=== PATIENT | female | born 1960 | race Caucasian/White ===

== ENCOUNTER 2019-03-09 15:07 | Inpatient (IN) | payer OTHER ==
[~2019-03-09] VITALS: Ht 172.7 cm; Wt 90.1 kg
[~2019-03-09 15:07] MED LIST: BUSP10TA PO; CLONAZEPAM1 MG PO; CYCL10TA2 PO; EPIPEN 2-P0.3 MG/0.3 IJ; ETOD400T PO; FLUT9.9S NS; LAMO100T5 PO; LORA10TA3 PO; MONT10TA49 PO; PREG75CA PO; PROP40TA PO; QUET400T7 PO; ROPI1TAB PO; ROTI1PAT2 TD; SUMA100T3 PO; TIOT18CA IH; VENTOLIN HFA18 GM INH
[2019-03-09] MEDS ORDERED: IV NORMAL SALINE 1000ML BAG 1,000 ML IV SCH (15:36)
[2019-03-09] MEDS ORDERED: KETOROLAC 30 MG/ML VIAL. IVP ONE (15:45)
[2019-03-09] MEDS ORDERED: diphenhydrAMINE 50 MG/ML VIAL IVP ONE (15:45)
[2019-03-09] MEDS ORDERED: PROCHLORPERAZINE 10 MG/2 ML VIAL. IV ONE (15:45)
--- NOTE | 2019-03-09 16:18 | PHYS DOC ---
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 Bentley. Patient states she just completed radiation on her brain at the frontal lobe in the left side of her head about 2 weeks ago. Patient states she's had a migraine for last 5 days. Patient states that her joints been hurting for the last month. Patient states she walked into her bedroom last night her legs gave out for no reason she fell hitting her head on the wall. She denies LOC but states her lower back in her bilateral hips are aching. Patient does not usually wear oxygen at home and she is 86% on room air. She is placed on 2 L of oxygen is at 91%. Patient states she was just weaned off his seizure medications and steroid with taking the last stair and 3 days ago. She states she also has back of the neck pain that usually comes with her migraines. She states that this does feel like a headache. She states that she does answer joints of all been hurting because they have taken her off of Etodolac. Patient states that she took a Imitrex this morning and Lamictal. She states that her pain continues. She rates her pain a 9 out of 10. She denies being on any blood thinners. She denies visual changes, nausea, vomit ing, photophobia, LOC, dizziness, increased shortness of air, fever, neck stiffness, numbness or tingling, abdominal pain, diarrhea. She states what made her call the ambulance today was that she began having left-sided chest pain that felt like she got punched in the chest to the point where it took her breath away. She states that since gone away. She stated that the pain lasted 30-45 minutes. Review of Systems Review of Systems Respiratory: Denies cough. +shortness of breath [] Cardiovascular: Left chest pain Musculoskeletal: lumbar back pain or hip joint pain [] Neurologic: headache, denies focal weakness or sensory changes [] All other systems were reviewed and found to be within normal limits, except as documented in this note. Current Medications Current Medications Current Medications Medications (Trade) Dose Ordered Sig/Bryant Start Time Stop Time Status Last Admin Dose Admin Acetaminophen (Tylenol) 650 mg PRN Q4HRS PRN 03/09/19 18:15 03/10/19 18:14 UNV Albuterol/ Ipratropium (Duoneb) 3 ml RTQID 03/09/19 20:00 03/10/19 19:59 UNV Ceftriaxone Sodium (Rocephin) 1 gm 1X ONCE 03/09/19 17:00 03/09/19 17:01 DC 03/09/19 17:13 1 GM Diphenhydramine HCl (Benadryl) 25 mg 1X ONCE 03/09/19 15:45 03/09/19 15:46 UNV Doxycycline Hyclate 100 mg/ Dextrose 100 ml @ 50 mls/hr 1X ONCE 03/09/19 17:00 03/09/19 18:59 03/09/19 17:26 50 MLS/HR Ketorolac Tromethamine (Toradol 30mg Vial) 30 mg 1X ONCE 03/09/19 15:45 03/09/19 15:50 DC 03/09/19 17:18 30 MG Methylprednisolone Sodium Succinate (SOLU-Medrol 125MG VIAL) 62.5 mg 1X ONCE 03/09/19 17:00 03/09/19 17:01 DC 03/09/19 17:23 62.5 MG Nitroglycerin (Nitrostat) 0.4 mg PRN Q5MIN PRN 03/09/19 18:15 03/10/19 18:14 UNV Ondansetron HCl (Zofran) 4 mg PRN Q8HRS PRN 03/09/19 18:15 03/10/19 18:14 UNV Prochlorperazine Edisylate (Compazine) 10 mg 1X ONCE 03/09/19 15:45 03/09/19 15:46 DC 03/09/19 17:21 10 MG Sodium Chloride 1,000 ml @ 1,000 mls/hr Q1H 03/09/19 15:36 03/09/19 16:35 DC 03/09/19 17:10 1,000 MLS/HR Allergies Allergies Allergies Coded Allergies Type Severity Reaction Last Updated Verified bee venom protein (honey bee) Allergy Intermediate 07/08/17 Yes celecoxib Allergy Intermediate 07/08/17 No diphenhydramine Allergy Intermediate 07/08/17 No fentanyl Allergy Intermediate 07/08/17 No hydromorphone Allergy Intermediate 07/08/17 Yes morphine Allergy Intermediate 07/08/17 No pramipexole Allergy Intermediate 07/08/17 No propoxyphene Allergy Intermediate 07/08/17 No tizanidine Allergy Unknown 07/08/17 No vancomycin Allergy Unknown 07/08/17 No varenicline Allergy Unknown 07/08/17 No Physical Exam Physical Exam Constitutional: Well developed, well nourished, no acute distress, non-toxic appearance. [] HENT: Normocephalic, atraumatic, bilateral external ears normal, oropharynx moist, no oral exudates, nose normal. [] Eyes: PERRLA, EOMI, conjunctiva normal, no discharge. [] Neck: Normal range of motion, no tenderness, supple, no stridor. [] Cardiovascular:Heart rate regular rhythm, no murmur [] Lungs & Thorax: Bilateral breath sounds diminished to auscultation [] Abdomen: Bowel sounds normal, soft, no tenderness, no masses, no pulsatile masses. [] Skin: Warm, dry, no erythema, no rash. [] Back: No tenderness, no CVA tenderness. [] Extremities: No tenderness, no cyanosis, no clubbing, ROM intact, no edema. [] Neurologic: Alert and oriented X 3, normal motor function, normal sensory function, no focal deficits noted. [] Psychologic: Affect normal, judgement normal, mood normal. [] Current Patient Data Vital Signs Vital Signs Date Time Temp Pulse Resp B/P (MAP) Pulse Ox O2 Delivery O2 Flow Rate FiO2 03/09/19 17:08 101 20 93 03/09/19 17:03 Nasal Cannula 3.0 03/09/19 15:10 98.9 108/84 (92) 98.9 Lab Values Laboratory Tests Test 03/09/19 14:52 03/09/19 15:36 03/09/19 16:45 Influenza Type A Antigen Negative (NEGATIVE) Influenza Type B Antigen Negative (NEGATIVE) O2 Saturation 92 % (92-99) Arterial Blood pH 7.41 (7.35-7.45) Arterial Blood pCO2 at Patient Temp 59 mmHg (35-46) H Arterial Blood pO2 at Patient Temp 56 mmHg (65-108) L Arterial Blood HCO3 36 mmol/L (21-28) H Arterial Blood Base Excess 9 mmol/L (-3-3) H Oxyhemoglobin 73.0 % Methemoglobin 0.3 % (0.0-1.9) Carbon Monoxide, Quantitative 20.2 % (0.0-1.9) *H FiO2 3l n.c. White Blood Count 7.8 x10^3/uL (4.0-11.0) Red Blood Count 4.49 x10^6/uL (3.50-5.40) Hemoglobin 15.2 g/dL (12.0-15.5) Hematocrit 43.1 % (36.0-47.0) Mean Corpuscular Volume 96 fL (79-100) Mean Corpuscular Hemoglobin 34 pg (25-35) Mean Corpuscular Hemoglobin Concent 35 g/dL (31-37) Red Cell Distribution Width 14.5 % (11.5-14.5) Platelet Count 166 x10^3/uL (140-400) Neutrophils (%) (Auto) 74 % (31-73) H Lymphocytes (%) (Auto) 19 % (24-48) L Monocytes (%) (Auto) 5 % (0-9) Eosinophils (%) (Auto) 1 % (0-3) Basophils (%) (Auto) 1 % (0-3) Neutrophils # (Auto) 5.8 x10^3/uL (1.8-7.7) Lymphocytes # (Auto) 1.5 x10^3/uL (1.0-4.8) Monocytes # (Auto) 0.4 x10^3/uL (0.0-1.1) Eosinophils # (Auto) 0.1 x10^3/uL (0.0-0.7) Basophils # (Auto) 0.1 x10^3/uL (0.0-0.2) Prothrombin Time 12.1 SEC (11.7-14.0) Prothrombin Time INR 0.9 (0.8-1.1) Sodium Level 138 mmol/L (136-145) Potassium Level 3.4 mmol/L (3.5-5.1) L Chloride Level 99 mmol/L (98-107) Carbon Dioxide Level 36 mmol/L (21-32) H Anion Gap 3 (6-14) L Blood Urea Nitrogen 10 mg/dL (7-20) Creatinine 0.5 mg/dL (0.6-1.0) L Estimated GFR (Cockcroft-Gault) 125.9 BUN/Creatinine Ratio 20 (6-20) Glucose Level 107 mg/dL (70-99) H Lactic Acid Level 0.5 mmol/L (0.4-2.0) Calcium Level 8.6 mg/dL (8.5-10.1) Total Bilirubin 0.5 mg/dL (0.2-1.0) Aspartate Amino Transferase (AST) 10 U/L (15-37) L Alanine Aminotransferase (ALT) 23 U/L (14-59) Alkaline Phosphatase 150 U/L (46-116) H Troponin I Quantitative < 0.017 ng/mL (0.000-0.055) Total Protein 6.4 g/dL (6.4-8.2) Albumin 2.8 g/dL (3.4-5.0) L Albumin/Globulin Ratio 0.8 (1.0-1.7) L Laboratory Tests 03/09/19 16:45 Laboratory Tests 03/09/19 16:45 EKG EKG SINUS TACHYCARDIA, NO STEMI[] Interpretation Time: [address] REYNOSO Radiology/Procedures Radiology/Procedures [] Impressions: [facility] [address] [place] [address] IMAGING REPORT Signed PATIENT: STEVEN LEE ACCOUNT: [id number] : 1960 LOCATION: ER AGE: 59 SEX: F EXAM STATUS: REG ER ORD. PHYSICIAN: ROSA FREDERICK APRN REASON: soa, chest pain, hx ca PROCEDURE: PORTABLE CHEST 1V PORTABLE CHEST 1V 03/09/2019 3:36 PM INDICATION: Shortness of air, chest pain COMPARISON: None available TECHNIQUE: Portable supine frontal view of the chest is provided. FINDINGS: The cardiomediastinal silhouette is within normal limits. There are bilateral perihilar interstitial changes which may be acute or chronic. There are no significant pleural effusions. There is no pulmonary vascular congestion. No pneumothorax. IMPRESSION: Perihilar interstitial changes may represent interstitial pneumonitis or interstitial edema in the acute setting. Findings could represent chronic interstitial lung disease. Electronically signed by: John Luna MD (03/09/2019 4:14 PM) [id number] DICTATED and SIGNED BY: JOHN LUNA MD DATE: 03/09/[address] [place] [id number] IMAGING REPORT Signed PATIENT: STEVEN LEE ACCOUNT: [id number] : 1960 LOCATION: ER AGE: 59 SEX: F EXAM STATUS: REG ER ORD. PHYSICIAN: ROSA FREDERICK APRN REASON: fall, pain PROCEDURE: HIP BILATERAL WITH PELVIS HIP BILATERAL WITH PELVIS 03/09/2019 3:36 PM INDICATION: Fall, pain COMPARISON: None available. TECHNIQUE: Single view the pelvis and 2 dedicated views of each hip are provided. FINDINGS/ IMPRESSION: There is no acute fracture or dislocation. Joint spaces are maintained. Bone mineralization is within normal limits. Regional soft tissues are within normal limits. There is no soft tissue gas or osseous erosion. No radiopaque foreign body. Electronically signed by: John Luna MD (03/09/2019 4:17 PM) [id number] DICTATED and SIGNED BY: JOHN LUNA MD DATE: 03/09/[address] [place] [id number] IMAGING REPORT Signed PATIENT: SETVEN LEE ACCOUNT: [id number] : 1960 LOCATION: ER AGE: 59 SEX: F EXAM STATUS: REG ER ORD. PHYSICIAN: ROSA FREDERICK APRN REASON: fall, pain PROCEDURE: LUMBAR SPINE MIN 4V LUMBAR SPINE MIN 4V 03/09/2019 3:36 PM Indication: Fall, pain COMPARISON: None available TECHNIQUE: 5 views of the lumbar spine are provided. Findings: There is minimal dextro convex curvature of the lumbar spine. No spondylolysis or spondylolisthesis. Vertebral body heights are maintained. No acute fracture is identified. Mild disc height loss at L4-L5. There is mild to moderate facet arthropathy with the lumbar spine. No significant endplate degenerative changes are identified. No significant osseous neuroforaminal stenosis or spinal canal stenosis. Nonobstructive bowel gas pattern. Visualized portions of the sacrum appear intact. Cholecystectomy clips are identified in the right upper quadrant abdomen. Impression: No acute fracture or sagittal malalignment of the lumbar spine. Mild dextroconvex curvature of the lumbar spine. Mild lumbar spondylosis. Electronically signed by: John Luna MD (03/09/2019 4:15 PM) [id number] DICTATED and SIGNED BY: JOHN LUNA MD DATE: 03/09/19 1615 [facility] [address] [place] [address] IMAGING REPORT Signed PATIENT: STEVEN LEE ACCOUNT: [id number] : 1960 LOCATION: ER AGE: 59 SEX: F EXAM STATUS: REG ER ORD. PHYSICIAN: ROSA FREDERICK APRN REASON: headache, fall hit head, brain ca PROCEDURE: CT HEAD AND CERVICAL SPINE WO Examination: CT HEAD AND CERVICAL SPINE WO History: Headache, fell and hit the head. Comparison/Correlation: None Findings: Axial images of the head and cervical spine were obtained without contrast. Sagittal and coronal reformatted images were provided. Right high frontal low attenuation probably representing infarct is present and of indeterminate age. No intracranial hemorrhage, shift, or mass effect. Atlantoaxial joint degenerative remodeling spurring noted. Vertebral body heights and disc spaces are adequate. Alignment is unremarkable. Neural foramina are patent. Soft tissues of the neck are unremarkable. Emphysematous involvement of the visualized lung apices noted. Impression: No intracranial hemorrhage. High right frontal low attenuation probably representing an infarct is present and of indeterminate age No fracture or bony destruction involving the cervical spine. PQRS Compliance Statement: One or more of the following individualized dose reduction techniques were utilized for this examination: 1. Automated exposure control 2. Adjustment of the mA and/or kV according to patient size 3. Use of iterative reconstruction technique Electronically signed by: Dayron De eLón MD (03/09/2019 4:51 PM) [facility] [place] DICTATED and SIGNED BY: DAYRON DE LEÓN MD DATE: 03/09/19 956 Course & Med Decision Making Course & Med Decision Making Alert and oriented. Speaks in full clear sentences. Lungs are diminished throughout all lobes. Abdomen is soft and nontender. There is no bruising on the patient's body or deformity to any joints or swelling. No abrasions no lacerations. No tenderness to palpation to the patients head. No bruising to the face or the head. No tenderness to the back with palpation. No deformity or bruising to her back. Patient has full range of motion in her neck. No tende rness to the neck with palpation. PERRLA. No chest pain with palpation. the swelling. there are no radiation booth to her head. full range of motion of her hips and no pain to palpation to her hips. no deformity to her hips or pelvis. no pain with pelvic rock. Has spoken Dr. Reynoso about this patient and he has seen her ABG. Patient is admitted to the hospital per Dr. Oconnor. I did start the patient on Rocephin and doxycycline. Dragon Disclaimer Dragon Disclaimer This electronic medical record was generated, in whole or in part, using a voice recognition dictation system. The HEART Score for CP Pts HEART Score for Chest Pain: HEART Score for Chest Pain Response (Comments) Value History Slighlty/Non-Suspicious 0 ECG Normal 0 Age >45 - < 65 1 Risk Factors 1 or 2 Risk Factors 1 Troponin < Normal Limit 0 Total 2 Risk Factors: Risk Factors: DM, Current or recent (<one month) smoker, HTN, HLP, family history of CAD, obesity. Risk Scores: Score 0 - 3: 2.5% MACE over next 6 weeks - Discharge Home Score 4 - 6: 20.3% MACE over next 6 weeks - Admit for Clinical Observation Score 7 - 10: 72.7% MACE over next 6 weeks - Early Invasive Strategies NIHSS Stroke Scale NIH Stroke Scale: NIH Stroke Scale Response (Comments) Value Level of Consciousness: 0 Alert/Responsive 0 LOC Questions: 0 Answers both correctly 0 LOC Commands: 0 Performs both tasks 0 Best Gaze: 0 Normal 0 Visual: 0 No visual loss 0 Facial Palsy: 0 Normal, symmetrical 0 Motor - Left Arm 0 No drift 0 Motor - Right Arm 0 No drift 0 Motor - Left Leg 0 No drift 0 Motor: Right Leg 0 No drift 0 Limb Ataxia: 0 Absent 0 Sensory: 0 No loss 0 Best Language: 0 Normal 0 Dysathria: 0 Normal 0 Extinction and Inattention: 0 Normal 0 Total 0 Departure Departure Impression: Primary Impression: Pneumonia Additional Impression: Chest pain Disposition: 09 ADMITTED INPATIENT Admitting Physician: NEHEMIAS Condition: STABLE Referrals: FRANKIE LOUIS MD (PCP) Problem Qualifiers Primary Impression: Pneumonia Pneumonia type: due to unspecified organism Laterality: left Lung locatio n: unspecified part of lung Qualified Codes: J18.9 - Pneumonia, un specified organism Additional Impression: Chest pain Chest pain type: unspecified Qualified Codes: R07.9 - Chest pain, unspecified ROSA FREDERICK [employer] Mar 09, 2019 16:18
--- NOTE | 2019-03-09 16:54 | RAD ---
Examination: CT HEAD AND CERVICAL SPINE WO History: Headache, fell and hit the head. Comparison/Correlation: None Findings: Axial images of the head and cervical spine were obtained without contrast. Sagittal and coronal reformatted images were provided. Right high frontal low attenuation probably representing infarct is present and of indeterminate age. No intracranial hemorrhage, shift, or mass effect. Atlantoaxial joint degenerative remodeling spurring noted. Vertebral body heights and disc spaces are adequate. Alignment is unremarkable. Neural foramina are patent. Soft tissues of the neck are unremarkable. Emphysematous involvement of the visualized lung apices noted. Impression: No intracranial hemorrhage. High right frontal low attenuation probably representing an infarct is present and of indeterminate age No fracture or bony destruction involving the cervical spine. PQRS Compliance Statement: One or more of the following individualized dose reduction techniques were utilized for this examination: 1. Automated exposure control 2. Adjustment of the mA and/or kV according to patient size 3. Use of iterative reconstruction technique Electronically signed by: Dayron Love MD (03/09/2019 4:51 PM) [facility]
[2019-03-09] MEDS ORDERED: IPRATRPIUM/ALBUTEROL 0.5/2.5MG 3 ML NEBU. NEB ONE (17:00)
[2019-03-09] MEDS ORDERED: methylPREDNISolone SOD SUCC PF 125 MG/2 ML VIAL. IV ONE (17:00)
[2019-03-09] MEDS ORDERED: cefTRIAXone IV Push 1 GM VIAL. IVP ONE (17:00)
[2019-03-09] MEDS ORDERED: DOXYCYCLINE HYCLATE 100 MG in IV DEXTROSE 5% 100ML 100 ML IV ONE (17:00)
[2019-03-09 17:13] LABS: BASO # 0.1 x10^3/uL (0.0-0.2); BASO % 1 % (0-3); EOS # 0.1 x10^3/uL (0.0-0.7); EOS % 1 % (0-3); HEMATOCRIT 43.1 % (36.0-47.0); HEMOGLOBIN 15.2 g/dL (12.0-15.5); LYMPH # 1.5 x10^3/uL (1.0-4.8); LYMPH % 19 % (24-48); MEAN CORPUSCULAR HEMOGLOBIN 34 pg (25-35); MEAN CORPUSCULAR HGB CONC 35 g/dL (31-37); MEAN CORPUSCULAR VOLUME 96 fL (79-100); MONO # 0.4 x10^3/uL (0.0-1.1); MONO % 5 % (0-9); NEUT # 5.8 x10^3/uL (1.8-7.7); NEUT % 74 % (31-73); PLATELET COUNT 166 x10^3/uL (140-400); RED BLOOD COUNT 4.49 x10^6/uL (3.50-5.40); RED CELL DISTRIBUTION WIDTH 14.5 % (11.5-14.5); WHITE BLOOD COUNT 7.8 x10^3/uL (4.0-11.0)
[2019-03-09 17:14] LABS: CALCIUM 8.6 mg/dL (8.5-10.1); CREATININE 0.5 mg/dL (0.6-1.0); GFR 125.9; POTASSIUM 3.4 mmol/L (3.5-5.1)
[2019-03-09 17:18] LABS: BASE EXCESS COOX 9 mmol/L (-3-3); HCO3 COOX 36 mmol/L (21-28); METHEMOGLOBIN 0.3 % (0.0-1.9); PCO2 COOX 59 mmHg (35-46); PO2 COOX 56 mmHg (65-108); SAT O2 COOX 92 % (92-99)
[2019-03-09 17:19] LABS: ALBUMIN 2.8 g/dL (3.4-5.0); ALBUMIN/GLOBULIN RATIO 0.8 (1.0-1.7); TOTAL BILIRUBIN 0.5 mg/dL (0.2-1.0); TOTAL PROTEIN 6.4 g/dL (6.4-8.2)
[2019-03-09 17:20] LABS: PROTHROMBIN TIME PATIENT 12.1 SEC (11.7-14.0)
[2019-03-09 17:47] LABS: INFLUENZA A PATIENT NEGATIVE (NEGATIVE); INFLUENZA B PATIENT NEGATIVE (NEGATIVE)
[2019-03-09] MEDS ORDERED: ONDANSETRON PF 4 MG/2 ML VIAL. IV PRN (18:15)
[2019-03-09] MEDS ORDERED: NITROGLYCERIN SUBLINGUAL 0.4 MG BOTTLE OF 25. SL PRN (18:15)
[2019-03-09] MEDS ORDERED: ACETAMINOPHEN 325 MG TABLET. PO PRN (18:15)
--- NOTE | 2019-03-09 19:27 | PDOC1 ---
History and Physical Date of Admission: Date of Admission DATE: 03/09/19 TIME: 19:23 Chief Complaint: Problems: (1) Chest pain (2) Pneumonia Chief Complain: Headache weakness lung cancer with metastases to the brain History of Present Illness: HPI: This is a pleasant 59-year-old female who has metastatic lung cancer to the brain. She is supposed to get some special chemotherapy that's experimental sometime in the future I suspect her long-term prognosis is quite poor Today she's developed a migraine headache presented to the ER for evaluation Rates her symptoms as 7 out of 10 She also has some left-sided chest pain I believe she was a previous smoker and has COPD She also fell recently Jose the ER we checked her O2 sat are chest x-ray is showing pneumonia nurse sat is 86% Discussed case with ER physician were going to with patient Past Medical/Surgical History: PMH/PSH: Past Medical History: Cancer, COPD, Migraines Past Surgical History: Other Additional Past Surgical Histo: UNKNOWN Alcohol Use: None Drug Use: None Metastatic lung cancer to the brain Allergies: Allergies: Coded Allergies: bee venom protein (honey bee) (Verified Allergy, Intermediate, 07/08/17) celecoxib (Unverified Allergy, Intermediate, 07/08/17) diphenhydramine (Unverified Allergy, Intermediate, 07/08/17) fentanyl (Unverified Allergy, Intermediate, 07/08/17) hydromorphone (Verified Allergy, Intermediate, 07/08/17) morphine (Unverified Allergy, Intermediate, 07/08/17) pramipexole (Unverified Allergy, Intermediate, 07/08/17) propoxyphene (Unverified Allergy, Intermediate, 07/08/17) tizanidine (Unverified Allergy, Unknown, 07/08/17) vancomycin (Unverified Allergy, Unknown, 07/08/17) varenicline (Unverified Allergy, Unknown, 07/08/17) Family History: Family History: Lung cancer Social History: Social Hisoty: She is to smoke or drink or drugs Current Medications: Current Medications Current Medications Sodium Chloride 1,000 ml @ 1,000 mls/hr Q1H IV Last administered on 03/09/19at 17:10; Start 03/09/19 at 15:36; Stop 03/09/19 at 16:35; Status DC Prochlorperazine Edisylate (Compazine) 10 mg 1X ONCE IV Last administered on 03/09/19at 17:21; Start 03/09/19 at 15:45; Stop 03/09/19 at 15:46; Status DC Diphenhydramine HCl (Benadryl) 25 mg 1X ONCE IVP ; Start 03/09/19 at 15:45; Stop 03/09/19 at 15:46; Status UNV Ketorolac Tromethamine (Toradol 30mg Vial) 30 mg 1X ONCE IVP Last administered on 03/09/19at 17:18; Start 03/09/19 at 15:45; Stop 03/09/19 at 15:50; Status DC Albuterol/ Ipratropium (Duoneb) 3 ml 1X ONCE NEB Last administered on 03/09/19at 17:00; Start 03/09/19 at 17:00; Stop 03/09/19 at 17:01; Status DC Ceftriaxone Sodium (Rocephin) 1 gm 1X ONCE IVP Last administered on 03/09/19at 17:13; Start 03/09/19 at 17:00; Stop 03/09/19 at 17:01; Status DC Doxycycline Hyclate 100 mg/ Dextrose 100 ml @ 50 mls/hr 1X ONCE IV Last administered on 03/09/19at 17:26; Start 03/09/19 at 17:00; Stop 03/09/19 at 18:59; Status DC Methylprednisolone Sodium Succinate (SOLU-Medrol 125MG VIAL) 62.5 mg 1X ONCE IV Last administered on 03/09/19at 17:23; Start 03/09/19 at 17:00; Stop 03/09/19 at 17:01; Status DC Ondansetron HCl (Zofran) 4 mg PRN Q8HRS PRN IV NAUSEA/VOMITING; Start 03/09/19 at 18:15; Stop 03/10/19 at 18:14 Acetaminophen (Tylenol) 650 mg PRN Q4HRS PRN PO FEVER; Start 03/09/19 at 18:15; Stop 03/10/19 at 18:14 Nitroglycerin (Nitrostat) 0.4 mg PRN Q5MIN PRN SL CHEST PAIN; Start 03/09/19 at 18:15; Stop 03/10/19 at 18:14 Albuterol/ Ipratropium (Duoneb) 3 ml RTQID NEB ; Start 03/09/19 at 20:00; Stop 03/10/19 at 19:59 Active Scripts Active Reported Lyrica (Pregabalin) 75 Mg Capsule 75 Mg PO TID Neupro (Rotigotine) 1 Each Patch.td24 1 Each TD Loratadine 10 Mg Tablet 10 Mg PO Montelukast Sodium Tablet (Montelukast Sodium) 10 Mg Tablet 10 Mg PO HS Flonase Allergy Relief (Fluticasone Propionate) 9.9 Ml [place].susp 2 Sprays NS DAILY Requip (Ropinirole Hcl) 1 Mg Tablet 1 Mg PO DAILY Etodolac 400 Mg Tablet 400 Mg PO Ventolin Hfa Inhaler (Albuterol Sulfate) 18 Gm Hfa.aer.ad 2 Puff INH Q4HRS Propranolol Hcl 40 Mg Tablet 40 Mg PO DAILY Lamictal (Lamotrigine) 100 Mg Tablet 100 Mg PO DAILY Propranolol Hcl 40 Mg Tablet 40 Mg PO DAILY Spiriva (Tiotropium [place]) 18 Mcg Cap.w.dev 2 Inh IH DAILY Imitrex (Sumatriptan Succinate) 100 Mg Tablet 100 Mg PO ONCE PRN Cyclobenzaprine Hcl 10 Mg Tablet 10 Mg PO TID Requip (Ropinirole Hcl) 1 Mg Tablet 1 Mg PO DAILY Lamictal (Lamotrigine) 100 Mg Tablet 100 Mg PO BID Buspirone Hcl 10 Mg Tablet 10 Mg PO BID Clonazepam 1 Mg Tablet 1 Mg PO DAILY Epipen 2-Chad (Epinephrine) 0.3 Mg/0.3 Ml Auto.injct 0.3 Mg IJ Seroquel Xr (Quetiapine Fumarate) 400 Mg Tab.er.24h 400 Mg PO HS ROS: Review of Systems Review of System REVIEW OF SYSTEMS: GENERAL: Denies weakness SKIN: No bruising, hair changes or rashes. EYES: No blurred, double or loss of vision. NOSE AND THROAT: No history of nosebleeds, hoarseness or sore throat. HEART: No history of palpitations, chest pain or shortness of breath on exertion. LUNGS: Denies cough, hemoptysis, wheezing or shortness of breath. GASTROINTESTINAL: Denies changes in appetite, nausea, vomiting, diarrhea or constipation. GENITOURINARY: No history of frequency, urgency, hesitancy or nocturia. NEUROLOGIC: Complains of headache PSYCHIATRIC: No history of panic, anxiety or depression. ENDOCRINE: No history of heat or cold intolerance, polyuria or polydipsia. EXTREMITIES: Denies muscle weakness, joint pain, pain on walking or stiffness. Physical Exam: Vital Signs: Vital Signs Date Time Temp Pulse Resp B/P (MAP) Pulse Ox O2 Delivery O2 Flow Rate FiO2 03/09/19 17:08 101 20 93 03/09/19 17:03 Nasal Cannula 3.0 03/09/19 15:10 98.9 108/84 (92) 98.9 Physcial Exam: GEN: No apparent distress. HEENT: Normal cephalic, atraumatic, external auditory canals are patent EYES: Extraocular muscles are intact, pupil are equally round and reactive to light and accommodation MUSCULOSKELETAL: Well developed , well nourished, good range of motion ENDOCRINE: Ny thyromegaly was palpated LYMPHATICS: No cervical chain or axillary nodes were noted HEMATOPOIETIC: No bruising NECK: Supple, no JVD, no thyromegaly was noted LUNGS: Clear to auscultation in all lung dunn without rhonchi or wheezing HEART: RRR, S!, S2 present. Peripheral pulses intact, no obvious murmurs noted ABDOMEN: Soft, nontender. Positive bowel sounds, no organomegaly, normal bowel sounds EXTREMITIES: Without clubbing, cyanosis, or edema. Pedal pulses intact. Negative Homans sign NEUROLOGIC: Resting with no apparent distress PSYCHIATRIC: Resting with no apparent distress SKIN: No ulcerations or rashes, good skin turgor, no jaundice VASCULAR: Good capillary refill, neurovascular bundle appears to be intact Labs: Labs: Laboratory Tests Test 03/09/19 14:52 03/09/19 15:36 03/09/19 16:45 Influenza Type A Antigen Negative (NEGATIVE) Influenza Type B Antigen Negative (NEGATIVE) O2 Saturation 92 % (92-99) Arterial Blood pH 7.41 (7.35-7.45) Arterial Blood pCO2 at Patient Temp 59 mmHg (35-46) Arterial Blood pO2 at Patient Temp 56 mmHg (65-108) Arterial Blood HCO3 36 mmol/L (21-28) Arterial Blood Base Excess 9 mmol/L (-3-3) Oxyhemoglobin 73.0 % Methemoglobin 0.3 % (0.0-1.9) Carbon Monoxide, Quantitative 20.2 % (0.0-1.9) FiO2 3l n.c. White Blood Count 7.8 x10^3/uL (4.0-11.0) Red Blood Count 4.49 x10^6/uL (3.50-5.40) Hemoglobin 15.2 g/dL (12.0-15.5) Hematocrit 43.1 % (36.0-47.0) Mean Corpuscular Volume 96 fL (79-100) Mean Corpuscular Hemoglobin 34 pg (25-35) Mean Corpuscular Hemoglobin Concent 35 g/dL (31-37) Red Cell Distribution Width 14.5 % (11.5-14.5) Platelet Count 166 x10^3/uL (140-400) Neutrophils (%) (Auto) 74 % (31-73) Lymphocytes (%) (Auto) 19 % (24-48) Monocytes (%) (Auto) 5 % (0-9) Eosinophils (%) (Auto) 1 % (0-3) Basophils (%) (Auto) 1 % (0-3) Neutrophils # (Auto) 5.8 x10^3/uL (1.8-7.7) Lymphocytes # (Auto) 1.5 x10^3/uL (1.0-4.8) Monocytes # (Auto) 0.4 x10^3/uL (0.0-1.1) Eosinophils # (Auto) 0.1 x10^3/uL (0.0-0.7) Basophils # (Auto) 0.1 x10^3/uL (0.0-0.2) Prothrombin Time 12.1 SEC (11.7-14.0) Prothromb Time International Ratio 0.9 (0.8-1.1) Sodium Level 138 mmol/L (136-145) Potassium Level 3.4 mmol/L (3.5-5.1) Chloride Level 99 mmol/L (98-107) Carbon Dioxide Level 36 mmol/L (21-32) Anion Gap 3 (6-14) Blood Urea Nitrogen 10 mg/dL (7-20) Creatinine 0.5 mg/dL (0.6-1.0) Estimated GFR (Cockcroft-Gault) 125.9 BUN/Creatinine Ratio 20 (6-20) Glucose Level 107 mg/dL (70-99) Lactic Acid Level 0.5 mmol/L (0.4-2.0) Calcium Level 8.6 mg/dL (8.5-10.1) Total Bilirubin 0.5 mg/dL (0.2-1.0) Aspartate Amino Transf (AST/SGOT) 10 U/L (15-37) Alanine Aminotransferase (ALT/SGPT) 23 U/L (14-59) Alkaline Phosphatase 150 U/L (46-116) Troponin I Quantitative < 0.017 ng/mL (0.000-0.055) Total Protein 6.4 g/dL (6.4-8.2) Albumin 2.8 g/dL (3.4-5.0) Albumin/Globulin Ratio 0.8 (1.0-1.7) Laboratory Tests Test 03/09/19 14:52 03/09/19 15:36 03/09/19 16:45 Influenza Type A Antigen Negative (NEGATIVE) Influenza Type B Antigen Negative (NEGATIVE) O2 Saturation 92 % (92-99) Arterial Blood pH 7.41 (7.35-7.45) Arterial Blood pCO2 at Patient Temp 59 mmHg (35-46) Arterial Blood pO2 at Patient Temp 56 mmHg (65-108) Arterial Blood HCO3 36 mmol/L (21-28) Arterial Blood Base Excess 9 mmol/L (-3-3) Oxyhemoglobin 73.0 % Methemoglobin 0.3 % (0.0-1.9) Carbon Monoxide, Quantitative 20.2 % (0.0-1.9) FiO2 3l n.c. White Blood Count 7.8 x10^3/uL (4.0-11.0) Red Blood Count 4.49 x10^6/uL (3.50-5.40) Hemoglobin 15.2 g/dL (12.0-15.5) Hematocrit 43.1 % (36.0-47.0) Mean Corpuscular Volume 96 fL (79-100) Mean Corpuscular Hemoglobin 34 pg (25-35) Mean Corpuscular Hemoglobin Concent 35 g/dL (31-37) Red Cell Distribution Width 14.5 % (11.5-14.5) Platelet Count 166 x10^3/uL (140-400) Neutrophils (%) (Auto) 74 % (31-73) Lymphocytes (%) (Auto) 19 % (24-48) Monocytes (%) (Auto) 5 % (0-9) Eosinophils (%) (Auto) 1 % (0-3) Basophils (%) (Auto) 1 % (0-3) Neutrophils # (Auto) 5.8 x10^3/uL (1.8-7.7) Lymphocytes # (Auto) 1.5 x10^3/uL (1.0-4.8) Monocytes # (Auto) 0.4 x10^3/uL (0.0-1.1) Eosinophils # (Auto) 0.1 x10^3/uL (0.0-0.7) Basophils # (Auto) 0.1 x10^3/uL (0.0-0.2) Prothrombin Time 12.1 SEC (11.7-14.0) Prothromb Time International Ratio 0.9 (0.8-1.1) Sodium Level 138 mmol/L (136-145) Potassium Level 3.4 mmol/L (3.5-5.1) Chloride Level 99 mmol/L (98-107) Carbon Dioxide Level 36 mmol/L (21-32) Anion Gap 3 (6-14) Blood Urea Nitrogen 10 mg/dL (7-20) Creatinine 0.5 mg/dL (0.6-1.0) Estimated GFR (Cockcroft-Gault) 125.9 BUN/Creatinine Ratio 20 (6-20) Glucose Level 107 mg/dL (70-99) Lactic Acid Level 0.5 mmol/L (0.4-2.0) Calcium Level 8.6 mg/dL (8.5-10.1) Total Bilirubin 0.5 mg/dL (0.2-1.0) Aspartate Amino Transf (AST/SGOT) 10 U/L (15-37) Alanine Aminotransferase (ALT/SGPT) 23 U/L (14-59) Alkaline Phosphatase 150 U/L (46-116) Troponin I Quantitative < 0.017 ng/mL (0.000-0.055) Total Protein 6.4 g/dL (6.4-8.2) Albumin 2.8 g/dL (3.4-5.0) Albumin/Globulin Ratio 0.8 (1.0-1.7) Assessment/Plan Assessment/Plan Pneumonia migraine hypoxia in a middle-aged female who has known lung cancer with metastases to the brain Plan Consult pulmonary Consult oncology IV antibiotics and duo nebs and oxygen Home meds DVT prophylaxis When necessary narcotics Full code Long-term prognosis is poor RAMOS REBOLLAR III DO Mar 09, 2019 19:27
[2019-03-09 19:39] VITALS: BP 107/73
--- NOTE | 2019-03-09 20:00 | NUR ---
Pt arrived to unit per cart pt assisted to bed poc explained vs obtained. Pt alert but very drowsy pt answered questions appropriate, pt oriented to surroundings and call light placed in reach assessment completed will resume care and continue to monitor pt.
[2019-03-09] MEDS: IPRATRPIUM/ALBUTEROL 0.5/2.5MG 3 ML NEBU. NEB SCH (20:14)
--- NOTE | 2019-03-09 20:29 | NUR ---
Dr. palmer returned call re: consult discussed abg ,may place on bipap if pt in distress
[2019-03-09] MEDS ORDERED: PROP40TA PO (20:54)
[2019-03-09] MEDS ORDERED: ALBU2.5V8 IH (20:54)
[2019-03-09] MEDS ORDERED: DEXA4TAB PO (20:54)
[2019-03-09] MEDS ORDERED: MULT-245 PO (20:54)
[2019-03-09] MEDS ORDERED: CHOL200059 PO (20:54)
[2019-03-09] MEDS ORDERED: ROPI2TAB4 PO (20:54)
[2019-03-09] MEDS ORDERED: QUET300T5 PO (20:54)
[2019-03-09] MEDS ORDERED: ESCITALOPRAM OX10 MG PO (20:54)
[2019-03-09] MEDS ORDERED: RAME8TAB19 PO (20:54)
[2019-03-09] MEDS ORDERED: AZEL137S3 NS (20:54)
[2019-03-09] MEDS ORDERED: LEVE500T6 PO (20:54)
[2019-03-09] MEDS ORDERED: ASCO500C9 PO (20:54)
[2019-03-09] MEDS ORDERED: CYCLOBENZAPRINE 10 MG TABLET. PO PRN (22:00)
[2019-03-09] MEDS ORDERED: AZELASTINE NASAL SPRAY 30ML BOTTLE. NS PRN (22:00)
[2019-03-09] MEDS ORDERED: RAMELTEON PO PRN (22:00)
[2019-03-09] MEDS ORDERED: SUMAtriptan SUCCINATE 100 MG TABLET PO PRN (22:00)
[2019-03-09 22:40] VITALS: BP 92/76
[2019-03-09] MEDS: PROPRANOLOL 40 MG TABLET. PO SCH (22:42)
[2019-03-09] MEDS: levETIRAcetam 500 MG TABLET PO SCH (22:43)
[2019-03-09] MEDS: rOPINIRole 1 MG TABLET. PO SCH (22:43)
[2019-03-09] MEDS: PREGABALIN 75 MG CAPSULE PO SCH (22:43)
[2019-03-09] MEDS ORDERED: QUEtiapine 300 MG TAB.ER.24H. PO SCH (23:00)
[2019-03-09] MEDS ORDERED: clonazePAM 0.5 MG TABLET PO SCH (23:00)
[2019-03-09] MEDS ORDERED: MONTELUKAST SODIUM 10 MG TABLET. PO SCH (23:00)
[2019-03-09] MEDS ORDERED: lamoTRIgine 100 MG TABLET. PO SCH (23:00)
[2019-03-10] MEDS: DEXAMETHASONE 4 MG TABLET PO SCH ×2 (00:47→06:25)
[2019-03-10 02:35] VITALS: BP 119/74
--- NOTE | 2019-03-10 06:35 | EKG ---
[facility] [address] [place] [address] Test Date: 2019-03-09 Test Time: 16:59:10 Pat Name: STEVEN LEE Department: Room: Gender: F [employer]: : 1960 Requested By: ROSA FREDERICK Order Number: [id number] Reading MD: Measurements Intervals [place] Rate: 102 P: 44 RI: 134 QRS: 32 QRSD: 78 T: 83 QT: 326 QTc: 429 Interpretive Statements SINUS TACHYCARDIA LEFT ATRIAL ABNORMALITY QRS(T) CONTOUR ABNORMALITY CONSIDER ANTEROLATERAL MYOCARDIAL DAMAGE ABNORMAL ECG RI6.01 No previous ECG available for comparison
[2019-03-10 07:00] VITALS: BP 110/76
[2019-03-10] MEDS: IPRATRPIUM/ALBUTEROL 0.5/2.5MG 3 ML NEBU. NEB SCH ×4 (07:41→15:51)
[2019-03-10] MEDS: rOPINIRole 1 MG TABLET. PO SCH ×2 (08:35→12:03)
[2019-03-10] MEDS: PROPRANOLOL 40 MG TABLET. PO SCH (08:35)
[2019-03-10] MEDS: levETIRAcetam 500 MG TABLET PO SCH (08:35)
[2019-03-10] MEDS: PREGABALIN 75 MG CAPSULE PO SCH ×3 (08:36→12:06)
[2019-03-10] MEDS ORDERED: CHOLECALCIFEROL (VITAMIN D3) 1,000 UNIT TABLET PO SCH (09:00)
[2019-03-10] MEDS ORDERED: ASCORBIC ACID 500 MG TABLET PO SCH (09:00)
[2019-03-10] MEDS ORDERED: FLUTICASONE 50MCG/NASAL SPRAY 16GM BOTTLE. NS SCH (09:00)
[2019-03-10] MEDS ORDERED: MULTIVITAMIN with MINERAL TABLET. PO SCH (09:00)
[2019-03-10] MEDS ORDERED: CITALOPRAM 20 MG TABLET. PO SCH (09:00)
[2019-03-10] MEDS ORDERED: guaiFENesin DM 200MG/20MG 10 ML SYRUP PO PRN (09:30)
[2019-03-10] MEDS: BENZONATATE 100 MG CAPSULE. PO SCH ×2 (10:00→12:11)
--- NOTE | 2019-03-10 10:01 | PDOC2 ---
CONSULT Date of Consult Date of Consult DATE: 03/10/19 TIME: 09:48 Reason for consultation: Lung cancer with brain metastasis Consult: Hematology oncology, Dr. Mannie Spear History of present illness: She is a 59-year-old smoker who was recently diagnosed in January 2019 with stage IV non-small cell lung carcinoma, PDL 1 positive, with unfortunate brain metastasis, noted right frontal and biparietal, on MRI in January at with mass effect and vasogenic edema right greater than left and 5 mm midline shift, since then she has been treated with 20 al to all 3 lesions completed on 08 February, and was on a steroid taper, to be weaned on Wednesday and unfortunately she developed a spontaneous fall on that day, 2 days ago, and she also had a fall similarly prior to starting radiotherapy, both times she hit her head, and has had headache, felt like she was having a migraine, acute, severe, ongoing 5 days, prior to admit, worse w/ brain mets, and steroid taper, much improved with steroids, but she hates steroids, and was to be on a clinical trial however steroids are prohibitive, she would need to be off for at least 2 weeks prior to beginning trial. Also she is on a medication for rheumatoid arthritis but she tells me it for her fibromyalgia since she is allergic to so many things, and believes she may have a component of rheumatoid arthritis? But it appears the fibromyalgia is more active. She is irritable related to her aches and pains and having to be on steroids and weight gain related to steroids. Past medical history: Non-small cell lung carcinoma stage IV with brain metastasis, possible solitary rib met Osteoarthritis Possible rheumatoid arthritis component? Asthma COPD Tobacco abuse Carpal tunnel syndrome Fibromyalgia History of ulcerative Gout Osteoporosis Hepatitis C Migraines Hyperlipidemia History of thrush related to steroids Left gluteal zoster Past surgical history: Hysterectomy Back surgery Cataracts Nose surgery and biopsy Foot surgery Cholecystectomy Carpal tunnel release Allergies: Ammonia, bleach, adhesive, elastic, bees, Benadryl, Celebrex, Chantix, Darvon, fentanyl, Dilaudid, morphine, Mirapex, naproxen, vancomycin, Zanaflex, hydrocodone, Ambien, wool Medications: See attached list Social history: She lives w/ her "old man", positive tobacco and wine and marijuana, has a daughter and a grandson Family history: Lung cancer, parents were adopted Review of systems: Headaches, joint pains, irritable, constipation and diarrhea usual, night sweats nightly, On oxygen, left chest pain yesterday, transient severe acute, assoc w/ shortness of breath and quickly resolved, the only neurologic symptoms she has includes headaches and 2 spontaneous falls Physical exam: Vitals reviewed Gen.: Elderly smoker with hoarse voice sitting in her chair HEENT: mucous membranes moist, head normocephalic atraumatic Neck: Supple, no lymphadenopathy Lymph nodes: No palpable lymphadenopathy neck or axilla Lungs: Breathing comfortably on NC O2 w/o respiratory distress Abdomen: Soft, nontender, nondistended Extremities: No cyanosis or signif edema Skin: No obvious rashes or skin breakdown Neuro: Alert and oriented 3 Psych: Normal mood and irritable affect related to health Lab reviewed: CBC normal, INR normal, influenza negative, creatinine 0.5, alkaline phosphatase 150, troponin negative, carbon monoxide 20.2 on blood gas Rads reviewed: MRI of the head 30 January showed right frontal and biparietal lobe masses, with mass effect and vasogenic edema, right greater than left with 5 mm midline shift Radiology scans here showed chest x-ray with perihilar interstitial changes CT head with right frontal infarct? Indeterminate? Hip pelvis and L-spine films without fracture Case discussed with: Pt, [facility], including labs and radiology, please see note for summary details Assessment and Plan: She is a 59-year-old female with stage IV non-small cell lung carcinoma PDL1+ and brain metastasis admitted with fall and headache on steroid taper after recent radiotherapy for her 3 brain lesions Brain metastasis: Much better on steroids, do think she needs steroids, will likely not be clinical trial candidate due to the need for steroids, she will have radiation oncology follow-up soon, one month planned after her 08 February RT was complete, since she wants to be on the lowest dose steroids possible due to weight gain and irritability we will decrease to 4 mg by mouth every 6 hours, she had been doing well until just a few days prior to the dex taper to off on Wednesday, certainly if THEAT[employer] DIRECTOR symptoms get worse can go back up on steroid dose, do recommend follow-up with radiation oncology, do recommend likely treating off trial, and Dr. Bentley will return on Wednesday, she has an appointment with him at that time, is also on prophylactic antiseizure medications, could potentially repeat MRI as needed, at [facility] as needed as well, smoking cessation has been recommended Falls: Suspect that if she is on a reasonable dose of steroids to control her edema the falls may stop? (only noted prior to treatment and after steroids weaned) Joint pains: Has significant improvement on her medication she tells me for rheumatoid arthritis though not sure the rheumatoid is actually active? could worsen w/ PD inhib? It would be reasonable to consider retreatment with this but defer to her primary care director, tells me potential interaction with antiseizure medicine?, Her primary care director does manage her joint pains Disposition: Per others, to follow-up with Dr. Bentley as outpatient Thank you kindly for this consultation, and please do not hesitate to call with any further questions. Current Problem List Problem List Problems Medical Problems: (1) Chest pain Status: Acute (2) Pneumonia Status: Acute Current Medications Current Medications Current Medications Sodium Chloride 1,000 ml @ 1,000 mls/hr Q1H IV Last administered on 03/09/19at 17:10; Start 03/09/19 at 15:36; Stop 03/09/19 at 16:35; Status DC Prochlorperazine Edisylate (Compazine) 10 mg 1X ONCE IV Last administered on 03/09/19at 17:21; Start 03/09/19 at 15:45; Stop 03/09/19 at 15:46; Status DC Diphenhydramine HCl (Benadryl) 25 mg 1X ONCE IVP ; Start 03/09/19 at 15:45; Stop 03/09/19 at 15:46; Status UNV Ketorolac Tromethamine (Toradol 30mg Vial) 30 mg 1X ONCE IVP Last administered on 03/09/19at 17:18; Start 03/09/19 at 15:45; Stop 03/09/19 at 15:50; Status DC Albuterol/ Ipratropium (Duoneb) 3 ml 1X ONCE NEB Last administered on 03/09/19at 17:00; Start 03/09/19 at 17:00; Stop 03/09/19 at 17:01; Status DC Ceftriaxone Sodium (Rocephin) 1 gm 1X ONCE IVP Last administered on 03/09/19at 17:13; Start 03/09/19 at 17:00; Stop 03/09/19 at 17:01; Status DC Doxycycline Hyclate 100 mg/ Dextrose 100 ml @ 50 mls/hr 1X ONCE IV Last admi nistered on 03/09/19at 17:26; Start 03/09/19 at 17:00; Stop 03/09/19 at 18:59; Status DC Methylprednisolone Sodium Succinate (SOLU-Medrol 125MG VIAL) 62.5 mg 1X ONCE IV Last administered on 03/09/19at 17:23; Start 03/09/19 at 17:00; Stop 03/09/19 at 17:01; Status DC Ondansetron HCl (Zofran) 4 mg PRN Q8HRS PRN IV NAUSEA/VOMITING; Start 03/09/19 at 18:15; Stop 03/10/19 at 18:14 Acetaminophen (Tylenol) 650 mg PRN Q4HRS PRN PO FEVER; Start 03/09/19 at 18:15; Stop 03/10/19 at 18:14 Nitroglycerin (Nitrostat) 0.4 mg PRN Q5MIN PRN SL CHEST PAIN; Start 03/09/19 at 18:15; Stop 03/10/19 at 18:14 Albuterol/ Ipratropium (Duoneb) 3 ml RTQID NEB Last administered on 03/10/19at 07:41; Start 03/09/19 at 20:00; Stop 03/10/19 at 19:59 Cyclobenzaprine HCl (Flexeril) 10 mg PRN TID PRN PO MUSCLE PAIN; Start 03/09/19 at 22:00 Dexamethasone (Decadron) 16 mg Q6HRS PO Last administered on 03/10/19at 06:25; Start 03/10/19 at 00:00 Lamotrigine (LaMICtal) 100 mg HS PO ; Start 03/09/19 at 23:00 Levetiracetam (Keppra) 500 mg BID PO Last administered on 03/10/19at 08:35; Start 03/09/19 at 23:00 Montelukast Sodium (Singulair) 10 mg HS PO Last administered on 03/09/19at 22:44; Start 03/09/19 at 23:00 Pregabalin (Lyrica) 75 mg TID PO Last administered on 03/10/19at 08:36; Start 03/09/19 at 23:00 Propranolol HCl (Inderal) 40 mg BID PO Last administered on 03/10/19 08:35; Start 03/09/19 at 23:00 Sumatriptan Succinate (Imitrex) 100 mg PRN DAILY PRN PO MIGRAINE HEADACHE Last administered on 03/10/19 06:30; Start 03/09/19 at 22:00 Ascorbic Acid (Vitamin C) 3,000 mg DAILY PO Last administered on 03/10/19 08:35; Start 03/10/19 at 09:00 Vitamin D (Vitamin D3) 1,000 unit DAILY PO Last administered on 03/10/19 08:35; Start 03/10/19 at 09:00 Clonazepam (KlonoPIN) 1 mg QHS PO ; Start 03/09/19 at 23:00 Citalopram Hydrobromide (CeleXA) 20 mg DAILY PO Last administered on 03/10/19 08:36; Start 03/10/19 at 09:00 Fluticasone Propionate (Flonase) 2 spray DAILY NS ; Start 03/10/19 at 09:00 Multivitamins (Thera M Plus) 1 tab DAILY PO Last administered on 03/10/19 08:35; Start 03/10/19 at 09:00 Non-Formulary Medication (Ramelteon (Rozerem)) 1 tab PRN QHS PRN PO INSOMNIA; Start 03/09/19 at 22:00; Status UNV Ropinirole HCl (Requip) 2 mg TID PO Last administered on 03/10/19 08:35; Start 03/09/19 at 23:00 Quetiapine Fumarate (SEROquel XR) 600 mg QHS PO ; Start 03/09/19 at 23:00 Azelastine HCl (Astelin) 2 spray PRN DAILY PRN NS ALLERGIES; Start 03/09/19 at 22:00 Albuterol/ Ipratropium (Duoneb) 3 ml RTQID NEB ; Start 03/10/19 at 12:00 Guaifenesin (Robitussin Dm) 10 ml PRN Q6HRS PRN PO COUGH; Start 03/10/19 at 09:30 Benzonatate (Tessalon Perle) 100 mg [id number] PO ; Start 03/10/19 at 10:00 Active Scripts Active Reported Proair Hfa (Albuterol Sulfate) 8.5 Gm Hfa.aer.ad 2 Puff IH PRN Q6HRS PRN 21 Days Escitalopram Oxalate 10 Mg Tablet 1 Tab PO DAILY Dexamethasone 4 Mg Tablet 4 Tab PO Q6HRS Azelastine Hcl 137 Mcg/0.137 Ml [place].pump 2 [place] NS PRN DAILY PRN 30 Days Vitamin D-3 (Cholecalciferol (Vitamin D3)) 2,000 Unit Tablet 1,000 Unit PO DAILY Vitamin C (Ascorbic Acid) 500 Mg Capsule 6 Cap PO DAILY 28 Days Multi Vitamin Daily (Multivitamin) 1 Each Tablet 1 Tab PO DAILY 30 Days Levetiracetam 500 Mg Tablet 1 Tab PO BID Propranolol Hcl 40 Mg Tablet 1 Tab PO BID Rozerem (Ramelteon) 8 Mg Tablet 1 Tab PO PRN QHS PRN 30 Days Ropinirole Hcl 2 Mg Tablet 2 Mg PO TID Seroquel (Quetiapine Fumarate) 300 Mg Tablet 2 Tab PO QHS Lyrica (Pregabalin) 75 Mg Capsule 75 Mg PO TID Neupro (Rotigotine) 1 Each Patch.td24 1 Each TD Montelukast Sodium Tablet (Montelukast Sodium) 10 Mg Tablet 10 Mg PO HS Flonase Allergy Relief (Fluticasone Propionate) 9.9 Ml [place].susp 2 Sprays NS DAILY Imitrex (Sumatriptan Succinate) 100 Mg Tablet 100 Mg PO PRN DAILY PRN Cyclobenzaprine Hcl 10 Mg Tablet 10 Mg PO PRN TID PRN Lamictal (Lamotrigine) 100 Mg Tablet 100 Mg PO HS Clonazepam 1 Mg Tablet 1 Mg PO HS Epipen 2-Chad (Epinephrine) 0.3 Mg/0.3 Ml Auto.injct 0.3 Mg IJ Allergies Allergies: Coded Allergies: bee venom protein (honey bee) (Verified Allergy, Intermediate, 07/08/17) celecoxib (Unverified Allergy, Intermediate, 07/08/17) diphenhydramine (Unverified Allergy, Intermediate, 07/08/17) fentanyl (Unverified Allergy, Intermediate, 07/08/17) hydromorphone (Verified Allergy, Intermediate, 07/08/17) morphine (Unverified Allergy, Intermediate, 07/08/17) pramipexole (Unverified Allergy, Intermediate, 07/08/17) propoxyphene (Unverified Allergy, Intermediate, 07/08/17) tizanidine (Unverified Allergy, Intermediate, 03/09/19) vancomycin (Unverified Allergy, Intermediate, 03/09/19) varenicline (Unverified Allergy, Intermediate, 03/09/19) Vitals VITALS Vital Signs Date Time Temp Pulse Resp B/P (MAP) Pulse Ox O2 Delivery O2 Flow Rate FiO2 03/10/19 08:35 101 110/76 03/10/19 07:42 96 Nasal Cannula 2.0 03/10/19 07:00 97.7 20 97.7 Labs Labs Laboratory Tests Test 03/09/19 14:52 03/09/19 15:36 03/09/19 16:45 03/09/19 21:10 Influenza Type A Antigen Negative (NEGATIVE) Influenza Type B Antigen Negative (NEGATIVE) O2 Saturation 92 % (92-99) Arterial Blood pH 7.41 (7.35-7.45) Arterial Blood pCO2 at Patient Temp 59 mmHg (35-46) Arterial Blood pO2 at Patient Temp 56 mmHg (65-108) Arterial Blood HCO3 36 mmol/L (21-28) Arterial Blood Base Excess 9 mmol/L (-3-3) Oxyhemoglobin 73.0 % Methemoglobin 0.3 % (0.0-1.9) Carbon Monoxide, Quantitative 20.2 % (0.0-1.9) FiO2 3l n.c. White Blood Count 7.8 x10^3/uL (4.0-11.0) Red Blood Count 4.49 x10^6/uL (3.50-5.40) Hemoglobin 15.2 g/dL (12.0-15.5) Hematocrit 43.1 % (36.0-47.0) Mean Corpuscular Volume 96 fL (79-100) Mean Corpuscular Hemoglobin 34 pg (25-35) Mean Corpuscular Hemoglobin Concent 35 g/dL (31-37) Red Cell Distribution Width 14.5 % (11.5-14.5) Platelet Count 166 x10^3/uL (140-400) Neutrophils (%) (Auto) 74 % (31-73) Lymphocytes (%) (Auto) 19 % (24-48) Monocytes (%) (Auto) 5 % (0-9) Eosinophils (%) (Auto) 1 % (0-3) Basophils (%) (Auto) 1 % (0-3) Neutrophils # (Auto) 5.8 x10^3/uL (1.8-7.7) Lymphocytes # (Auto) 1.5 x10^3/uL (1.0-4.8) Monocytes # (Auto) 0.4 x10^3/uL (0.0-1.1) Eosinophils # (Auto) 0.1 x10^3/uL (0.0-0.7) Basophils # (Auto) 0.1 x10^3/uL (0.0-0.2) Prothrombin Time 12.1 SEC (11.7-14.0) Prothromb Time International Ratio 0.9 (0.8-1.1) Sodium Level 138 mmol/L (136-145) Potassium Level 3.4 mmol/L (3.5-5.1) Chloride Level 99 mmol/L (98-107) Carbon Dioxide Level 36 mmol/L (21-32) Anion Gap 3 (6-14) Blood Urea Nitrogen 10 mg/dL (7-20) Creatinine 0.5 mg/dL (0.6-1.0) Estimated GFR (Cockcroft-Gault) 125.9 BUN/Creatinine Ratio 20 (6-20) Glucose Level 107 mg/dL (70-99) Lactic Acid Level 0.5 mmol/L (0.4-2.0) Calcium Level 8.6 mg/dL (8.5-10.1) Total Bilirubin 0.5 mg/dL (0.2-1.0) Aspartate Amino Transf (AST/SGOT) 10 U/L (15-37) Alanine Aminotransferase (ALT/SGPT) 23 U/L (14-59) Alkaline Phosphatase 150 U/L (46-116) Troponin I Quantitative < 0.017 ng/mL (0.000-0.055) < 0.017 ng/mL (0.000-0.055) Total Protein 6.4 g/dL (6.4-8.2) Albumin 2.8 g/dL (3.4-5.0) Albumin/Globulin Ratio 0.8 (1.0-1.7) Laboratory Tests Test 03/09/19 14:52 03/09/19 15:36 03/09/19 16:45 03/09/19 21:10 Influenza Type A Antigen Negative (NEGATIVE) Influenza Type B Antigen Negative (NEGATIVE) O2 Saturation 92 % (92-99) Arterial Blood pH 7.41 (7.35-7.45) Arterial Blood pCO2 at Patient Temp 59 mmHg (35-46) Arterial Blood pO2 at Patient Temp 56 mmHg (65-108) Arterial Blood HCO3 36 mmol/L (21-28) Arterial Blood Base Excess 9 mmol/L (-3-3) Oxyhemoglobin 73.0 % Methemoglobin 0.3 % (0.0-1.9) Carbon Monoxide, Quantitative 20.2 % (0.0-1.9) FiO2 3l n.c. White Blood Count 7.8 x10^3/uL (4.0-11.0) Red Blood Count 4.49 x10^6/uL (3.50-5.40) Hemoglobin 15.2 g/dL (12.0-15.5) Hematocrit 43.1 % (36.0-47.0) Mean Corpuscular Volume 96 fL (79-100) Mean Corpuscular Hemoglobin 34 pg (25-35) Mean Corpuscular Hemoglobin Concent 35 g/dL (31-37) Red Cell Distribution Width 14.5 % (11.5-14.5) Platelet Count 166 x10^3/uL (140-400) Neutrophils (%) (Auto) 74 % (31-73) Lymphocytes (%) (Auto) 19 % (24-48) Monocytes (%) (Auto) 5 % (0-9) Eosinophils (%) (Auto) 1 % (0-3) Basophils (%) (Auto) 1 % (0-3) Neutrophils # (Auto) 5.8 x10^3/uL (1.8-7.7) Lymphocytes # (Auto) 1.5 x10^3/uL (1.0-4.8) Monocytes # (Auto) 0.4 x10^3/uL (0.0-1.1) Eosinophils # (Auto) 0.1 x10^3/uL (0.0-0.7) Basophils # (Auto) 0.1 x10^3/uL (0.0-0.2) Prothrombin Time 12.1 SEC (11.7-14.0) Prothromb Time International Ratio 0.9 (0.8-1.1) Sodium Level 138 mmol/L (136-145) Potassium Level 3.4 mmol/L (3.5-5.1) Chloride Level 99 mmol/L (98-107) Carbon Dioxide Level 36 mmol/L (21-32) Anion Gap 3 (6-14) Blood Urea Nitrogen 10 mg/dL (7-20) Creatinine 0.5 mg/dL (0.6-1.0) Estimated GFR (Cockcroft-Gault) 125.9 BUN/Creatinine Ratio 20 (6-20) Glucose Level 107 mg/dL (70-99) Lactic Acid Level 0.5 mmol/L (0.4-2.0) Calcium Level 8.6 mg/dL (8.5-10.1) Total Bilirubin 0.5 mg/dL (0.2-1.0) Aspartate Amino Transf (AST/SGOT) 10 U/L (15-37) Alanine Aminotransferase (ALT/SGPT) 23 U/L (14-59) Alkaline Phosphatase 150 U/L (46-116) Troponin I Quantitative < 0.017 ng/mL (0.000-0.055) < 0.017 ng/mL (0.000-0.055) Total Protein 6.4 g/dL (6.4-8.2) Albumin 2.8 g/dL (3.4-5.0) Albumin/Globulin Ratio 0.8 (1.0-1.7) MANNIE SPEAR MD Mar 10, 2019 10:01
--- NOTE | 2019-03-10 10:39 | PDOC ---
PROGRESS NOTES Chief Complaint Chief Complaint Chest pain Lung CA planned for trail med WednesdayMar 13 by arturo onc Obesity BMI 30 Rspi failure, mixed BIPAP 03/09/2019 CHronci lung dse, no active infection on CXR AOCD Hypokalemia with tremors cramps occasional History of Present Illness History of Present Illness K 3,.4 She asks to cont her home regimen kcl which she does not know dose- dw RN NO identifiable precip factor for CP NO personal hx CP PLanned for trial lung cancer treatment this wednesday - SO THEY WERE WEANING HER OFF STEROID AND AED (fall hx) MINIMAL AIR EXCHANGE on auscultation, no wheezing STILL SMOKES A PACK A DAY, down from 2 packs per day PLAN: SUpportive meds, inhalers, johnny patch smoking cessation Await cards and pulmo round She denies need for O2 or BIPAP MIght need 6mw? kcl 40 x 1 RN to check on her home dose kcl - she doesnt know Vitals Vitals Vital Signs Date Time Temp Pulse Resp B/P (MAP) Pulse Ox O2 Delivery O2 Flow Rate FiO2 03/10/19 08:35 101 110/76 03/10/19 07:42 96 Nasal Cannula 2.0 03/10/19 07:00 97.7 20 97.7 Physical Exam General: Alert, Oriented X3, Cooperative, No acute distress, Other (on nc) Heart: Regular rate Lungs: Other (minimal air exchange) Abdomen: Normal bowel sounds, Soft, No tenderness, No hepatosplenomegaly Extremities: No clubbing, No cyanosis, No edema, Normal pulses Skin: No rashes, No breakdown, No significant lesion Labs LABS Laboratory Tests Test 03/09/19 14:52 03/09/19 15:36 03/09/19 16:45 03/09/19 21:10 Influenza Type A Antigen Negative (NEGATIVE) Influenza Type B Antigen Negative (NEGATIVE) O2 Saturation 92 % (92-99) Arterial Blood pH 7.41 (7.35-7.45) Arterial Blood pCO2 at Patient Temp 59 mmHg (35-46) Arterial Blood pO2 at Patient Temp 56 mmHg (65-108) Arterial Blood HCO3 36 mmol/L (21-28) Arterial Blood Base Excess 9 mmol/L (-3-3) Oxyhemoglobin 73.0 % Methemoglobin 0.3 % (0.0-1.9) Carbon Monoxide, Quantitative 20.2 % (0.0-1.9) FiO2 3l n.c. White Blood Count 7.8 x10^3/uL (4.0-11.0) Red Blood Count 4.49 x10^6/uL (3.50-5.40) Hemoglobin 15.2 g/dL (12.0-15.5) Hematocrit 43.1 % (36.0-47.0) Mean Corpuscular Volume 96 fL (79-100) Mean Corpuscular Hemoglobin 34 pg (25-35) Mean Corpuscular Hemoglobin Concent 35 g/dL (31-37) Red Cell Distribution Width 14.5 % (11.5-14.5) Platelet Count 166 x10^3/uL (140-400) Neutrophils (%) (Auto) 74 % (31-73) Lymphocytes (%) (Auto) 19 % (24-48) Monocytes (%) (Auto) 5 % (0-9) Eosinophils (%) (Auto) 1 % (0-3) Basophils (%) (Auto) 1 % (0-3) Neutrophils # (Auto) 5.8 x10^3/uL (1.8-7.7) Lymphocytes # (Auto) 1.5 x10^3/uL (1.0-4.8) Monocytes # (Auto) 0.4 x10^3/uL (0.0-1.1) Eosinophils # (Auto) 0.1 x10^3/uL (0.0-0.7) Basophils # (Auto) 0.1 x10^3/uL (0.0-0.2) Prothrombin Time 12.1 SEC (11.7-14.0) Prothromb Time International Ratio 0.9 (0.8-1.1) Sodium Level 138 mmol/L (136-145) Potassium Level 3.4 mmol/L (3.5-5.1) Chloride Level 99 mmol/L (98-107) Carbon Dioxide Level 36 mmol/L (21-32) Anion Gap 3 (6-14) Blood Urea Nitrogen 10 mg/dL (7-20) Creatinine 0.5 mg/dL (0.6-1.0) Estimated GFR (Cockcroft-Gault) 125.9 BUN/Creatinine Ratio 20 (6-20) Glucose Level 107 mg/dL (70-99) Lactic Acid Level 0.5 mmol/L (0.4-2.0) Calcium Level 8.6 mg/dL (8.5-10.1) Total Bilirubin 0.5 mg/dL (0.2-1.0) Aspartate Amino Transf (AST/SGOT) 10 U/L (15-37) Alanine Aminotransferase (ALT/SGPT) 23 U/L (14-59) Alkaline Phosphatase 150 U/L (46-116) Troponin I Quantitative < 0.017 ng/mL (0.000-0.055) < 0.017 ng/mL (0.000-0.055) Total Protein 6.4 g/dL (6.4-8.2) Albumin 2.8 g/dL (3.4-5.0) Albumin/Globulin Ratio 0.8 (1.0-1.7) Review of Systems Review of Systems soa weak on exertion, chest pain as abolve, all else is neg Assessment and Plan Assessmemt and Plan Problems Medical Problems: (1) Chest pain Status: Acute (2) Pneumonia Status: Acute Comment Review of Relevant I have reviewed the following items gosia (where applicable) has been applied. Labs Laboratory Tests Test 03/09/19 14:52 03/09/19 15:36 03/09/19 16:45 03/09/19 21:10 Influenza Type A Antigen Negative (NEGATIVE) Influenza Type B Antigen Negative (NEGATIVE) O2 Saturation 92 % (92-99) Arterial Blood pH 7.41 (7.35-7.45) Arterial Blood pCO2 at Patient Temp 59 mmHg (35-46) Arterial Blood pO2 at Patient Temp 56 mmHg (65-108) Arterial Blood HCO3 36 mmol/L (21-28) Arterial Blood Base Excess 9 mmol/L (-3-3) Oxyhemoglobin 73.0 % Methemoglobin 0.3 % (0.0-1.9) Carbon Monoxide, Quantitative 20.2 % (0.0-1.9) FiO2 3l n.c. White Blood Count 7.8 x10^3/uL (4.0-11.0) Red Blood Count 4.49 x10^6/uL (3.50-5.40) Hemoglobin 15.2 g/dL (12.0-15.5) Hematocrit 43.1 % (36.0-47.0) Mean Corpuscular Volume 96 fL (79-100) Mean Corpuscular Hemoglobin 34 pg (25-35) Mean Corpuscular Hemoglobin Concent 35 g/dL (31-37) Red Cell Distribution Width 14.5 % (11.5-14.5) Platelet Count 166 x10^3/uL (140-400) Neutrophils (%) (Auto) 74 % (31-73) Lymphocytes (%) (Auto) 19 % (24-48) Monocytes (%) (Auto) 5 % (0-9) Eosinophils (%) (Auto) 1 % (0-3) Basophils (%) (Auto) 1 % (0-3) Neutrophils # (Auto) 5.8 x10^3/uL (1.8-7.7) Lymphocytes # (Auto) 1.5 x10^3/uL (1.0-4.8) Monocytes # (Auto) 0.4 x10^3/uL (0.0-1.1) Eosinophils # (Auto) 0.1 x10^3/uL (0.0-0.7) Basophils # (Auto) 0.1 x10^3/uL (0.0-0.2) Prothrombin Time 12.1 SEC (11.7-14.0) Prothromb Time International Ratio 0.9 (0.8-1.1) Sodium Level 138 mmol/L (136-145) Potassium Level 3.4 mmol/L (3.5-5.1) Chloride Level 99 mmol/L (98-107) Carbon Dioxide Level 36 mmol/L (21-32) Anion Gap 3 (6-14) Blood Urea Nitrogen 10 mg/dL (7-20) Creatinine 0.5 mg/dL (0.6-1.0) Estimated GFR (Cockcroft-Gault) 125.9 BUN/Creatinine Ratio 20 (6-20) Glucose Level 107 mg/dL (70-99) Lactic Acid Level 0.5 mmol/L (0.4-2.0) Calcium Level 8.6 mg/dL (8.5-10.1) Total Bilirubin 0.5 mg/dL (0.2-1.0) Aspartate Amino Transf (AST/SGOT) 10 U/L (15-37) Alanine Aminotransferase (ALT/SGPT) 23 U/L (14-59) Alkaline Phosphatase 150 U/L (46-116) Troponin I Quantitative < 0.017 ng/mL (0.000-0.055) < 0.017 ng/mL (0.000-0.055) Total Protein 6.4 g/dL (6.4-8.2) Albumin 2.8 g/dL (3.4-5.0) Albumin/Globulin Ratio 0.8 (1.0-1.7) Laboratory Tests Test 03/09/19 14:52 03/09/19 15:36 03/09/19 16:45 03/09/19 21:10 Influenza Type A Antigen Negative (NEGATIVE) Influenza Type B Antigen Negative (NEGATIVE) O2 Saturation 92 % (92-99) Arterial Blood pH 7.41 (7.35-7.45) Arterial Blood pCO2 at Patient Temp 59 mmHg (35-46) Arterial Blood pO2 at Patient Temp 56 mmHg (65-108) Arterial Blood HCO3 36 mmol/L (21-28) Arterial Blood Base Excess 9 mmol/L (-3-3) Oxyhemoglobin 73.0 % Methemoglobin 0.3 % (0.0-1.9) Carbon Monoxide, Quantitative 20.2 % (0.0-1.9) FiO2 3l n.c. White Blood Count 7.8 x10^3/uL (4.0-11.0) Red Blood Count 4.49 x10^6/uL (3.50-5.40) Hemoglobin 15.2 g/dL (12.0-15.5) Hematocrit 43.1 % (36.0-47.0) Mean Corpuscular Volume 96 fL (79-100) Mean Corpuscular Hemoglobin 34 pg (25-35) Mean Corpuscular Hemoglobin Concent 35 g/dL (31-37) Red Cell Distribution Width 14.5 % (11.5-14.5) Platelet Count 166 x10^3/uL (140-400) Neutrophils (%) (Auto) 74 % (31-73) Lymphocytes (%) (Auto) 19 % (24-48) Monocytes (%) (Auto) 5 % (0-9) Eosinophils (%) (Auto) 1 % (0-3) Basophils (%) (Auto) 1 % (0-3) Neutrophils # (Auto) 5.8 x10^3/uL (1.8-7.7) Lymphocytes # (Auto) 1.5 x10^3/uL (1.0-4.8) Monocytes # (Auto) 0.4 x10^3/uL (0.0-1.1) Eosinophils # (Auto) 0.1 x10^3/uL (0.0-0.7) Basophils # (Auto) 0.1 x10^3/uL (0.0-0.2) Prothrombin Time 12.1 SEC (11.7-14.0) Prothromb Time International Ratio 0.9 (0.8-1.1) Sodium Level 138 mmol/L (136-145) Potassium Level 3.4 mmol/L (3.5-5.1) Chloride Level 99 mmol/L (98-107) Carbon Dioxide Level 36 mmol/L (21-32) Anion Gap 3 (6-14) Blood Urea Nitrogen 10 mg/dL (7-20) Creatinine 0.5 mg/dL (0.6-1.0) Estimated GFR (Cockcroft-Gault) 125.9 BUN/Creatinine Ratio 20 (6-20) Glucose Level 107 mg/dL (70-99) Lactic Acid Level 0.5 mmol/L (0.4-2.0) Calcium Level 8.6 mg/dL (8.5-10.1) Total Bilirubin 0.5 mg/dL (0.2-1.0) Aspartate Amino Transf (AST/SGOT) 10 U/L (15-37) Alanine Aminotransferase (ALT/SGPT) 23 U/L (14-59) Alkaline Phosphatase 150 U/L (46-116) Troponin I Quantitative < 0.017 ng/mL (0.000-0.055) < 0.017 ng/mL (0.000-0.055) Total Protein 6.4 g/dL (6.4-8.2) Albumin 2.8 g/dL (3.4-5.0) Albumin/Globulin Ratio 0.8 (1.0-1.7) Medications Current Medications Sodium Chloride 1,000 ml @ 1,000 mls/hr Q1H IV Last administered on 03/09/19at 17:10; Start 03/09/19 at 15:36; Stop 03/09/19 at 16:35; Status DC Prochlorperazine Edisylate (Compazine) 10 mg 1X ONCE IV Last administered on 03/09/19at 17:21; Start 03/09/19 at 15:45; Stop 03/09/19 at 15:46; Status DC Diphenhydramine HCl (Benadryl) 25 mg 1X ONCE IVP ; Start 03/09/19 at 15:45; Stop 03/09/19 at 15:46; Status UNV Ketorolac Tromethamine (Toradol 30mg Vial) 30 mg 1X ONCE IVP Last administered on 03/09/19at 17:18; Start 03/09/19 at 15:45; Stop 03/09/19 at 15:50; Status DC Albuterol/ Ipratropium (Duoneb) 3 ml 1X ONCE NEB Last administered on 03/09/19at 17:00; Start 03/09/19 at 17:00; Stop 03/09/19 at 17:01; Status DC Ceftriaxone Sodium (Rocephin) 1 gm 1X ONCE IVP Last administered on 03/09/19at 17:13; Start 03/09/19 at 17:00; Stop 03/09/19 at 17:01; Status DC Doxycycline Hyclate 100 mg/ Dextrose 100 ml @ 50 mls/hr 1X ONCE IV Last administered on 03/09/19at 17:26; Start 03/09/19 at 17:00; Stop 03/09/19 at 18:59; Status DC Methylprednisolone Sodium Succinate (SOLU-Medrol 125MG VIAL) 62.5 mg 1X ONCE IV Last administered on 03/09/19at 17:23; Start 03/09/19 at 17:00; Stop 03/09/19 at 17:01; Status DC Ondansetron HCl (Zofran) 4 mg PRN Q8HRS PRN IV NAUSEA/VOMITING; Start 03/09/19 at 18:15; Stop 03/10/19 at 18:14 Acetaminophen (Tylenol) 650 mg PRN Q4HRS PRN PO FEVER; Start 03/09/19 at 18:15; Stop 03/10/19 at 18:14 Nitroglycerin (Nitrostat) 0.4 mg PRN Q5MIN PRN SL CHEST PAIN; Start 03/09/19 at 18:15; Stop 03/10/19 at 18:14 Albuterol/ Ipratropium (Duoneb) 3 ml RTQID NEB Last administered on 03/10/19at 07:41; Start 03/09/19 at 20:00; Stop 03/10/19 at 19:59 Cyclobenzaprine HCl (Flexeril) 10 mg PRN TID PRN PO MUSCLE PAIN; Start 03/09/19 at 22:00 Dexamethasone (Decadron) 16 mg Q6HRS PO Last administered on 03/10/19at 06:25; Start 03/10/19 at 00:00; Stop 03/10/19 at 09:48; Status DC Lamotrigine (LaMICtal) 100 mg HS PO ; Start 03/09/19 at 23:00 Levetiracetam (Keppra) 500 mg BID PO Last administered on 03/10/19at 08:35; Start 03/09/19 at 23:00 Montelukast Sodium (Singulair) 10 mg HS PO Last administered on 03/09/19at 22:44; Start 03/09/19 at 23:00 Pregabalin (Lyrica) 75 mg TID PO Last administered on 03/10/19at 08:36; Start 03/09/19 at 23:00 Propranolol HCl (Inderal) 40 mg BID PO Last administered on 03/10/19at 08:35; Start 03/09/19 at 23:00 Sumatriptan Succinate (Imitrex) 100 mg PRN DAILY PRN PO MIGRAINE HEADACHE Last administered on 03/10/19at 06:30; Start 03/09/19 at 22:00 Ascorbic Acid (Vitamin C) 3,000 mg DAILY PO Last administered on 03/10/19at 08:35; Start 03/10/19 at 09:00 Vitamin D (Vitamin D3) 1,000 unit DAILY PO Last administered on 03/10/19at 08:35; Start 03/10/19 at 09:00 Clonazepam (KlonoPIN) 1 mg QHS PO ; Start 03/09/19 at 23:00 Citalopram Hydrobromide (CeleXA) 20 mg DAILY PO Last administered on 03/10/19at 08:36; Start 03/10/19 at 09:00 Fluticasone Propionate (Flonase) 2 spray DAILY NS ; Start 03/10/19 at 09:00 Multivitamins (Thera M Plus) 1 tab DAILY PO Last administered on 03/10/19at 08:35; Start 03/10/19 at 09:00 Non-Formulary Medication (Ramelteon (Rozerem)) 1 tab PRN QHS PRN PO INSOMNIA; Start 03/09/19 at 22:00; Stop 03/10/19 at 10:08; Status DC Ropinirole HCl (Requip) 2 mg TID PO Last administered on 03/10/19at 08:35; Start 03/09/19 at 23:00 Quetiapine Fumarate (SEROquel XR) 600 mg QHS PO ; Start 03/09/19 at 23:00 Azelastine HCl (Astelin) 2 spray PRN DAILY PRN NS ALLERGIES; Start 03/09/19 at 22:00 Albuterol/ Ipratropium (Duoneb) 3 ml RTQID NEB ; Start 03/10/19 at 12:00 Guaifenesin (Robitussin Dm) 10 ml PRN Q6HRS PRN PO COUGH; Start 03/10/19 at 09:30 Benzonatate (Tessalon Perle) 100 mg [id number] PO ; Start 03/10/19 at 10:00 Dexamethasone (Decadron) 4 mg Q6HRS PO ; Start 03/10/19 at 12:00 Active Scripts Active Reported Proair Hfa (Albuterol Sulfate) 8.5 Gm Hfa.aer.ad 2 Puff IH PRN Q6HRS PRN 21 Days Escitalopram Oxalate 10 Mg Tablet 1 Tab PO DAILY Dexamethasone 4 Mg Tablet 4 Tab PO Q6HRS Azelastine Hcl 137 Mcg/0.137 Ml [place].pump 2 [place] NS PRN DAILY PRN 30 Days Vitamin D-3 (Cholecalciferol (Vitamin D3)) 2,000 Unit Tablet 1,000 Unit PO DAILY Vitamin C (Ascorbic Acid) 500 Mg Capsule 6 Cap PO DAILY 28 Days Multi Vitamin Daily (Multivitamin) 1 Each Tablet 1 Tab PO DAILY 30 Days Levetiracetam 500 Mg Tablet 1 Tab PO BID Propranolol Hcl 40 Mg Tablet 1 Tab PO BID Rozerem (Ramelteon) 8 Mg Tablet 1 Tab PO PRN QHS PRN 30 Days Ropinirole Hcl 2 Mg Tablet 2 Mg PO TID Seroquel (Quetiapine Fumarate) 300 Mg Tablet 2 Tab PO QHS Lyrica (Pregabalin) 75 Mg Capsule 75 Mg PO TID Neupro (Rotigotine) 1 Each Patch.td24 1 Each TD Montelukast Sodium Tablet (Montelukast Sodium) 10 Mg Tablet 10 Mg PO HS Flonase Allergy Relief (Fluticasone Propionate) 9.9 Ml [place].susp 2 Sprays NS DAILY Imitrex (Sumatriptan Succinate) 100 Mg Tablet 100 Mg PO PRN DAILY PRN Cyclobenzaprine Hcl 10 Mg Tablet 10 Mg PO PRN TID PRN Lamictal (Lamotrigine) 100 Mg Tablet 100 Mg PO HS Clonazepam 1 Mg Tablet 1 Mg PO HS Epipen 2-Chad (Epinephrine) 0.3 Mg/0.3 Ml Auto.injct 0.3 Mg IJ Vitals/I & O Vital Sign - Last 24 Hours 03/09/19 03/09/19 03/09/19 03/09/19 15:10 17:03 17:08 18:00 Temp 98.9 98.9 Pulse 107 101 96 Resp 22 20 20 B/P (MAP) 108/84 (92) Pulse Ox 86 93 93 98 O2 Delivery Room Air Nasal Cannula O2 Flow Rate 3.0 03/09/19 03/09/19 03/09/19 03/09/19 18:30 19:30 19:39 20:14 Temp 98.2 98.2 Pulse 96 97 Resp 20 16 B/P (MAP) 107/73 (84) Pulse Ox 98 98 94 O2 Delivery Nasal Cannula Nasal Cannula Nasal Cannula O2 Flow Rate 2.0 4.0 4.0 03/09/19 03/10/19 03/10/19 03/10/19 22:40 02:35 07:00 07:42 Temp 98.0 98.1 97.7 98.0 98.1 97.7 Pulse 101 98 101 Resp 18 20 20 B/P (MAP) 92/76 (81) 119/74 (89) 110/76 (87) Pulse Ox 91 92 91 96 O2 Delivery Nasal Cannula Nasal Cannula Nasal Cannula Nasal Cannula O2 Flow Rate 2.0 2.0 2.0 2.0 03/10/19 08:35 Pulse 101 B/P (MAP) 110/76 Intake and Output 03/09/19 03/09/19 03/10/19 15:00 23:00 07:00 Intake Total 0 ml 200 ml Balance 0 ml 200 ml TYSHAWN SNYDER MD Mar 10, 2019 10:39
[2019-03-10] MEDS ORDERED: POTASSIUM CHLORIDE 20 MEQ TABLET.ER. PO ONE (10:45)
[2019-03-10] MEDS ORDERED: NICOTINE 21MG PATCH. TD PRN (10:45)
[2019-03-10 11:23] VITALS: BP 96/72
--- NOTE | 2019-03-10 11:28 | NUR ---
SS following for discharge planning. SS reviewed pt chart. Pt is from home and is currently requiring oxygen. SS will continue to follow for discharge planning.
[2019-03-10] MEDS ORDERED: DEXAMETHASONE 4 MG TABLET PO SCH (12:00)
--- NOTE | 2019-03-10 12:31 | PDOC2 ---
LORENZOCAMILLE KAUR AMYRA 03/10/19 1231: CARDIAC CONSULT DATE OF CONSULT Date of Consult DATE: 03/10/19 TIME: 12:25 REASON FOR CONSULT Reason for Consult: Chest pain REFERRING PHYSICIAN Referring Physician: Yari Huber APRN SOURCE Source: Chart review, Patient HISTORY OF PRESENT ILLNESS HISTORY OF PRESENT ILLNESS This is a 59 yo female, with a recent diagnosis stage IV metastatic lung CA, who presented secondary to migraine, fall, and left-sided chest pain. Patient report having fall Wednesday evening. Was walking to her bedroom to go to bed. Reports her legs gave out and she fell to the floor, hitting her head on the wall. Luckily, her heard her fall and was able to help her up. No LOC. Went to bed following. The next morning, had pain in her left chest. [place] as if someone punched her in he left chest. Took her breath away. No dizziness, diaphoresis, palpitations, or nausea/vomiting. Pain lasted about 45 minutes and resolved without intervention. No further pain overnight PAST MEDICAL HISTORY Pulmonary: COPD Heme/Onc: Cancer (metastatic lung CA) Psych: Anxiety, Depression Musculoskeletal: Osteoarthritis Rheumatologic: Gout PAST SURGICAL HISTORY Past Surgical History: Cataract Removal, Hysterectomy FAMILY HISTORY Family History: Family History Unknown, Adopted SOCIAL HISTORY Smoke: 1 pack per day ALCOHOL: occassional Drugs: None Lives: with Family CURRENT MEDICATIONS CURRENT MEDICATIONS Current Medications Medications (Trade) Dose Ordered Sig/Bryant Route PRN Reason Start Time Stop Time Status Last Admin Dose Admin Sodium Chloride 1,000 ml @ 1,000 mls/hr Q1H IV 03/09/19 15:36 03/09/19 16:35 DC 03/09/19 17:10 Prochlorperazine Edisylate (Compazine) 10 mg 1X ONCE IV 03/09/19 15:45 03/09/19 15:46 DC 03/09/19 17:21 Ketorolac Tromethamine (Toradol 30mg Vial) 30 mg 1X ONCE IVP 03/09/19 15:45 03/09/19 15:50 DC 03/09/19 17:18 Albuterol/ Ipratropium (Duoneb) 3 ml 1X ONCE NEB 03/09/19 17:00 03/09/19 17:01 DC 03/09/19 17:00 Ceftriaxone Sodium (Rocephin) 1 gm 1X ONCE IVP 03/09/19 17:00 03/09/19 17:01 DC 03/09/19 17:13 Doxycycline Hyclate 100 mg/ Dextrose 100 ml @ 50 mls/hr 1X ONCE IV 03/09/19 17:00 03/09/19 18:59 DC 03/09/19 17:26 Methylprednisolone Sodium Succinate (SOLU-Medrol 125MG VIAL) 62.5 mg 1X ONCE IV 03/09/19 17:00 03/09/19 17:01 DC 03/09/19 17:23 Albuterol/ Ipratropium (Duoneb) 3 ml RTQID NEB 03/09/19 20:00 03/10/19 19:59 03/10/19 07:41 Dexamethasone (Decadron) 16 mg Q6HRS PO 03/10/19 00:00 03/10/19 09:48 DC 03/10/19 06:25 Levetiracetam (Keppra) 500 mg BID PO 03/09/19 23:00 03/10/19 08:35 Montelukast Sodium (Singulair) 10 mg HS PO 03/09/19 23:00 03/09/19 22:44 Pregabalin (Lyrica) 75 mg TID PO 03/09/19 23:00 03/10/19 09:30 Propranolol HCl (Inderal) 40 mg BID PO 03/09/19 23:00 03/10/19 08:35 Sumatriptan Succinate (Imitrex) 100 mg PRN DAILY PRN PO MIGRAINE HEADACHE 03/09/19 22:00 03/10/19 06:30 Ascorbic Acid (Vitamin C) 3,000 mg DAILY PO 03/10/19 09:00 03/10/19 08:35 Vitamin D (Vitamin D3) 1,000 unit DAILY PO 03/10/19 09:00 03/10/19 08:35 Citalopram Hydrobromide (CeleXA) 20 mg DAILY PO 03/10/19 09:00 03/10/19 08:36 Multivitamins (Thera M Plus) 1 tab DAILY PO 03/10/19 09:00 03/10/19 08:35 Ropinirole HCl (Requip) 2 mg TID PO 03/09/19 23:00 1/3/20 12:03 Dexamethasone (Decadron) 4 mg Q6HRS PO 03/10/19 12:00 03/10/19 12:09 Potassium Chloride (Klor-Con) 40 meq 1X ONCE PO 03/10/19 10:45 03/10/19 10:46 DC 03/10/19 12:03 ALLERGIES ALLERGIES: Coded Allergies: bee venom protein (honey bee) (Verified Allergy, Intermediate, 07/08/17) celecoxib (Unverified Allergy, Intermediate, 07/08/17) diphenhydramine (Unverified Allergy, Intermediate, 07/08/17) fentanyl (Unverified Allergy, Intermediate, 07/08/17) hydromorphone (Verified Allergy, Intermediate, 07/08/17) morphine (Unverified Allergy, Intermediate, 07/08/17) pramipexole (Unverified Allergy, Intermediate, 07/08/17) propoxyphene (Unverified Allergy, Intermediate, 07/08/17) tizanidine (Unverified Allergy, Intermediate, 03/09/19) vancomycin (Unverified Allergy, Intermediate, 03/09/19) varenicline (Unverified Allergy, Intermediate, 03/09/19) ROS Review of System 14 point ROS conducted with pertinent positives noted above in HPI PHYSICAL EXAM General: Alert, Oriented X3, Cooperative, No acute distress HEENT: Atraumatic, Mucous membr. moist/pink Lungs: Other (diminished ) Heart: Regular rate, Normal S1, Normal S2, No murmurs Abdomen: Normal bowel sounds, No tenderness Extremities: No edema, Normal pulses Neuro: Normal speech, Sensation intact Psych/Mental Status: Mental status NL, Mood NL MUSCULOSKELETAL: Osteoarthritic changes both hands VITALS/I&O VITALS/I&O: Vital Signs Date Time Temp Pulse Resp B/P (MAP) Pulse Ox O2 Delivery O2 Flow Rate FiO2 03/10/19 11:23 98.2 81 20 96/72 (80) 94 Nasal Cannula 2.0 98.2 I & O 03/09/19 03/09/19 03/10/19 15:00 23:00 07:00 Intake Total 0 ml 200 ml Balance 0 ml 200 ml LABS Lab: Laboratory Tests Test 03/09/19 14:52 03/09/19 15:36 03/09/19 16:45 03/09/19 21:10 Influenza Type A Antigen Negative (NEGATIVE) Influenza Type B Antigen Negative (NEGATIVE) O2 Saturation 92 % (92-99) Arterial Blood pH 7.41 (7.35-7.45) Arterial Blood pCO2 at Patient Temp 59 mmHg (35-46) H Arterial Blood pO2 at Patient Temp 56 mmHg (65-108) L Arterial Blood HCO3 36 mmol/L (21-28) H Arterial Blood Base Excess 9 mmol/L (-3-3) H Oxyhemoglobin 73.0 % Methemoglobin 0.3 % (0.0-1.9) Carbon Monoxide, Quantitative 20.2 % (0.0-1.9) *H FiO2 3l n.c. White Blood Count 7.8 x10^3/uL (4.0-11.0) Red Blood Count 4.49 x10^6/uL (3.50-5.40) Hemoglobin 15.2 g/dL (12.0-15.5) Hematocrit 43.1 % (36.0-47.0) Mean Corpuscular Volume 96 fL (79-100) Mean Corpuscular Hemoglobin 34 pg (25-35) Mean Corpuscular Hemoglobin Concent 35 g/dL (31-37) Red Cell Distribution Width 14.5 % (11.5-14.5) Platelet Count 166 x10^3/uL (140-400) Neutrophils (%) (Auto) 74 % (31-73) H Lymphocytes (%) (Auto) 19 % (24-48) L Monocytes (%) (Auto) 5 % (0-9) Eosinophils (%) (Auto) 1 % (0-3) Basophils (%) (Auto) 1 % (0-3) Neutrophils # (Auto) 5.8 x10^3/uL (1.8-7.7) Lymphocytes # (Auto) 1.5 x10^3/uL (1.0-4.8) Monocytes # (Auto) 0.4 x10^3/uL (0.0-1.1) Eosinophils # (Auto) 0.1 x10^3/uL (0.0-0.7) Basophils # (Auto) 0.1 x10^3/uL (0.0-0.2) Prothrombin Time 12.1 SEC (11.7-14.0) Prothrombin Time INR 0.9 (0.8-1.1) Sodium Level 138 mmol/L (136-145) Potassium Level 3.4 mmol/L (3.5-5.1) L Chloride Level 99 mmol/L (98-107) Carbon Dioxide Level 36 mmol/L (21-32) H Anion Gap 3 (6-14) L Blood Urea Nitrogen 10 mg/dL (7-20) Creatinine 0.5 mg/dL (0.6-1.0) L Estimated GFR (Cockcroft-Gault) 125.9 BUN/Creatinine Ratio 20 (6-20) Glucose Level 107 mg/dL (70-99) H Lactic Acid Level 0.5 mmol/L (0.4-2.0) Calcium Level 8.6 mg/dL (8.5-10.1) Total Bilirubin 0.5 mg/dL (0.2-1.0) Aspartate Amino Transferase (AST) 10 U/L (15-37) L Alanine Aminotransferase (ALT) 23 U/L (14-59) Alkaline Phosphatase 150 U/L (46-116) H Troponin I Quantitative < 0.017 ng/mL (0.000-0.055) < 0.017 ng/mL (0.000-0.055) Total Protein 6.4 g/dL (6.4-8.2) Albumin 2.8 g/dL (3.4-5.0) L Albumin/Globulin Ratio 0.8 (1.0-1.7) L Laboratory Tests 03/09/19 16:45 Laboratory Tests 03/09/19 16:45 ASSESSMENT/PLAN ASSESSMENT/PLAN 1. Acute on chronic respiratory failure with AE COPD 2. Mechanical fall 3. Chest pain, atypical; AMI ruled out. 4. Hyperlipidemia 5. Metastatic lung CA with brain involvement. Recent diagnosis. S/p radiation to brain lesions. 6. Ongoing tobaccoism; discussed/encouraged cessation Recommendations baseline echo lipids Lung optimization Follow pul/hemonc recommendations CAMPBELL MCKEON MD 03/10/19 8870: CARDIAC CONSULT ASSESSMENT/PLAN ASSESSMENT/PLAN Patient seen and examined. Agree with DIRECTOR OF [employer]ERSONN[employer]'s assessment and plan. Chest pain with atypical features. Myocardial infarction been ruled out. 2-D echo showed normal LV function without any wall motion abnormalities. Continue current treatment for acute COPD exacerbation per pulmonary team. Thank you for your consultation CAMILLE VENTURA APRN Mar 10, 2019 12:31 CAMPBELL MCKEON MD Mar 10, 2019 16:05
--- NOTE | 2019-03-10 13:31 | PDOC ---
PULMONARY PROGRESS NOTES Subjective FULL NOTE DICTATED HYPOXEMIA WILL NEED 6 M W POSSIBLE LYMPHATIC SPREAD VS INTERSTITIAL PNEUMONIA Vitals Vital Signs Date Time Temp Pulse Resp B/P (MAP) Pulse Ox O2 Delivery O2 Flow Rate FiO2 03/10/19 12:41 Room Air 03/10/19 12:34 98 2.0 03/10/19 11:23 98.2 81 20 96/72 (80) 98.2 Lungs: Other (minimal air exchange) Labs Laboratory Tests Test 03/09/19 14:52 03/09/19 15:36 03/09/19 16:45 03/09/19 21:10 Influenza Type A Antigen Negative (NEGATIVE) Influenza Type B Antigen Negative (NEGATIVE) O2 Saturation 92 % (92-99) Arterial Blood pH 7.41 (7.35-7.45) Arterial Blood pCO2 at Patient Temp 59 mmHg (35-46) Arterial Blood pO2 at Patient Temp 56 mmHg (65-108) Arterial Blood HCO3 36 mmol/L (21-28) Arterial Blood Base Excess 9 mmol/L (-3-3) Oxyhemoglobin 73.0 % Methemoglobin 0.3 % (0.0-1.9) Carbon Monoxide, Quantitative 20.2 % (0.0-1.9) FiO2 3l n.c. White Blood Count 7.8 x10^3/uL (4.0-11.0) Red Blood Count 4.49 x10^6/uL (3.50-5.40) Hemoglobin 15.2 g/dL (12.0-15.5) Hematocrit 43.1 % (36.0-47.0) Mean Corpuscular Volume 96 fL (79-100) Mean Corpuscular Hemoglobin 34 pg (25-35) Mean Corpuscular Hemoglobin Concent 35 g/dL (31-37) Red Cell Distribution Width 14.5 % (11.5-14.5) Platelet Count 166 x10^3/uL (140-400) Neutrophils (%) (Auto) 74 % (31-73) Lymphocytes (%) (Auto) 19 % (24-48) Monocytes (%) (Auto) 5 % (0-9) Eosinophils (%) (Auto) 1 % (0-3) Basophils (%) (Auto) 1 % (0-3) Neutrophils # (Auto) 5.8 x10^3/uL (1.8-7.7) Lymphocytes # (Auto) 1.5 x10^3/uL (1.0-4.8) Monocytes # (Auto) 0.4 x10^3/uL (0.0-1.1) Eosinophils # (Auto) 0.1 x10^3/uL (0.0-0.7) Basophils # (Auto) 0.1 x10^3/uL (0.0-0.2) Prothrombin Time 12.1 SEC (11.7-14.0) Prothromb Time International Ratio 0.9 (0.8-1.1) Sodium Level 138 mmol/L (136-145) Potassium Level 3.4 mmol/L (3.5-5.1) Chloride Level 99 mmol/L (98-107) Carbon Dioxide Level 36 mmol/L (21-32) Anion Gap 3 (6-14) Blood Urea Nitrogen 10 mg/dL (7-20) Creatinine 0.5 mg/dL (0.6-1.0) Estimated GFR (Cockcroft-Gault) 125.9 BUN/Creatinine Ratio 20 (6-20) Glucose Level 107 mg/dL (70-99) Lactic Acid Level 0.5 mmol/L (0.4-2.0) Calcium Level 8.6 mg/dL (8.5-10.1) Total Bilirubin 0.5 mg/dL (0.2-1.0) Aspartate Amino Transf (AST/SGOT) 10 U/L (15-37) Alanine Aminotransferase (ALT/SGPT) 23 U/L (14-59) Alkaline Phosphatase 150 U/L (46-116) Troponin I Quantitative < 0.017 ng/mL (0.000-0.055) < 0.017 ng/mL (0.000-0.055) Total Protein 6.4 g/dL (6.4-8.2) Albumin 2.8 g/dL (3.4-5.0) Albumin/Globulin Ratio 0.8 (1.0-1.7) Laboratory Tests Test 03/09/19 14:52 03/09/19 15:36 03/09/19 16:45 03/09/19 21:10 Influenza Type A Antigen Negative (NEGATIVE) Influenza Type B Antigen Negative (NEGATIVE) O2 Saturation 92 % (92-99) Arterial Blood pH 7.41 (7.35-7.45) Arterial Blood pCO2 at Patient Temp 59 mmHg (35-46) Arterial Blood pO2 at Patient Temp 56 mmHg (65-108) Arterial Blood HCO3 36 mmol/L (21-28) Arterial Blood Base Excess 9 mmol/L (-3-3) Oxyhemoglobin 73.0 % Methemoglobin 0.3 % (0.0-1.9) Carbon Monoxide, Quantitative 20.2 % (0.0-1.9) FiO2 3l n.c. White Blood Count 7.8 x10^3/uL (4.0-11.0) Red Blood Count 4.49 x10^6/uL (3.50-5.40) Hemoglobin 15.2 g/dL (12.0-15.5) Hematocrit 43.1 % (36.0-47.0) Mean Corpuscular Volume 96 fL (79-100) Mean Corpuscular Hemoglobin 34 pg (25-35) Mean Corpuscular Hemoglobin Concent 35 g/dL (31-37) Red Cell Distribution Width 14.5 % (11.5-14.5) Platelet Count 166 x10^3/uL (140-400) Neutrophils (%) (Auto) 74 % (31-73) Lymphocytes (%) (Auto) 19 % (24-48) Monocytes (%) (Auto) 5 % (0-9) Eosinophils (%) (Auto) 1 % (0-3) Basophils (%) (Auto) 1 % (0-3) Neutrophils # (Auto) 5.8 x10^3/uL (1.8-7.7) Lymphocytes # (Auto) 1.5 x10^3/uL (1.0-4.8) Monocytes # (Auto) 0.4 x10^3/uL (0.0-1.1) Eosinophils # (Auto) 0.1 x10^3/uL (0.0-0.7) Basophils # (Auto) 0.1 x10^3/uL (0.0-0.2) Prothrombin Time 12.1 SEC (11.7-14.0) Prothromb Time International Ratio 0.9 (0.8-1.1) Sodium Level 138 mmol/L (136-145) Potassium Level 3.4 mmol/L (3.5-5.1) Chloride Level 99 mmol/L (98-107) Carbon Dioxide Level 36 mmol/L (21-32) Anion Gap 3 (6-14) Blood Urea Nitrogen 10 mg/dL (7-20) Creatinine 0.5 mg/dL (0.6-1.0) Estimated GFR (Cockcroft-Gault) 125.9 BUN/Creatinine Ratio 20 (6-20) Glucose Level 107 mg/dL (70-99) Lactic Acid Level 0.5 mmol/L (0.4-2.0) Calcium Level 8.6 mg/dL (8.5-10.1) Total Bilirubin 0.5 mg/dL (0.2-1.0) Aspartate Amino Transf (AST/SGOT) 10 U/L (15-37) Alanine Aminotransferase (ALT/SGPT) 23 U/L (14-59) Alkaline Phosphatase 150 U/L (46-116) Troponin I Quantitative < 0.017 ng/mL (0.000-0.055) < 0.017 ng/mL (0.000-0.055) Total Protein 6.4 g/dL (6.4-8.2) Albumin 2.8 g/dL (3.4-5.0) Albumin/Globulin Ratio 0.8 (1.0-1.7) Medications Active Scripts Medications Dose Route/Sig Max Daily Dose Days Date Category Proair Hfa (Albuterol Sulfate) 8.5 Gm Hfa.aer.ad 2 Puff IH PRN Q6HRS PRN 21 03/09/19 Reported Escitalopram Oxalate 10 Mg Tablet 1 Tab PO DAILY 03/09/19 Reported Dexamethasone 4 Mg Tablet 4 Tab PO Q6HRS 03/09/19 Reported Azelastine Hcl 137 Mcg/0.137 Ml [place].pump 2 [place] NS PRN DAILY PRN 30 03/09/19 Reported Vitamin D-3 (Cholecalciferol (Vitamin D3)) 2,000 Unit Tablet 1,000 Unit PO DAILY 03/09/19 Reported Vitamin C (Ascorbic Acid) 500 Mg Capsule 6 Cap PO DAILY 28 03/09/19 Reported Multi Vitamin Daily (Multivitamin) 1 Each Tablet 1 Tab PO DAILY 30 03/09/19 Reported Levetiracetam 500 Mg Tablet 1 Tab PO BID 03/09/19 Reported Propranolol Hcl 40 Mg Tablet 1 Tab PO BID 03/09/19 Reported Rozerem (Ramelteon) 8 Mg Tablet 1 Tab PO PRN QHS PRN 30 03/09/19 Reported Ropinirole Hcl 2 Mg Tablet 2 Mg PO TID 03/09/19 Reported Seroquel (Quetiapine Fumarate) 300 Mg Tablet 2 Tab PO QHS 03/09/19 Reported Lyrica (Pregabalin) 75 Mg Capsule 75 Mg PO TID 07/08/17 Reported Neupro (Rotigotine) 1 Each Patch.td24 1 Each TD 07/08/17 Reported Montelukast Sodium Tablet (Montelukast Sodium) 10 Mg Tablet 10 Mg PO HS 07/08/17 Reported Flonase Allergy Relief (Fluticasone Propionate) 9.9 Ml [place].susp 2 Sprays NS DAILY 07/08/17 Reported Imitrex (Sumatriptan Succinate) 100 Mg Tablet 100 Mg PO PRN DAILY PRN 07/08/17 Reported Cyclobenzaprine Hcl 10 Mg Tablet 10 Mg PO PRN TID PRN 07/08/17 Reported Lamictal (Lamotrigine) 100 Mg Tablet 100 Mg PO HS 07/08/17 Reported Clonazepam 1 Mg Tablet 1 Mg PO HS 07/08/17 Reported Epipen 2-Chad (Epinephrine) 0.3 Mg/0.3 Ml Auto.injct 0.3 Mg IJ 07/08/17 Reported TALIB THOMPSON MD Mar 10, 2019 13:31
[2019-03-10] MEDS ORDERED: DOXYCYCLINE HYCLATE 100 MG TABLET PO SCH (14:00)
[2019-03-10 15:00] VITALS: BP 96/75
[2019-03-10] MEDS ORDERED: DOXY100T PO (15:29)
--- NOTE | 2019-03-10 15:33 | PDOC3 ---
Discharge Summary Visit Information Date of Admission: Mar 09, 2019 Date of Discharge: Mar 10, 2019 Admitting Diagnosis Comment: NON CARDIAC chest pain Lung CA planned for trail [facility] WednesdayMar 13 by heme onc Obesity BMI 30 Respi failure, mixed BIPAP 03/09/2019 CHronci lung dse, no active infection on CXR AOCD Hypokalemia with tremors cramps occasional Final Diagnosis Problems Medical Problems: (1) Chest pain Status: Acute (2) Pneumonia Status: Acute Brief Hospital Course Allergies Allergies Coded Allergies Type Severity Reaction Last Updated Verified bee venom protein (honey bee) Allergy Intermediate 07/08/17 Yes celecoxib Allergy Intermediate 07/08/17 No diphenhydramine Allergy Intermediate 07/08/17 No fentanyl Allergy Intermediate 07/08/17 No hydromorphone Allergy Intermediate 07/08/17 Yes morphine Allergy Intermediate 07/08/17 No pramipexole Allergy Intermediate 07/08/17 No propoxyphene Allergy Intermediate 07/08/17 No tizanidine Allergy Intermediate 03/09/19 No vancomycin Allergy Intermediate 03/09/19 No varenicline Allergy Intermediate 03/09/19 No Vital Signs Vital Signs Date Time Temp Pulse Resp B/P (MAP) Pulse Ox O2 Delivery O2 Flow Rate FiO2 03/10/19 12:41 Room Air 03/10/19 12:34 98 2.0 03/10/19 11:23 98.2 81 20 96/72 (80) 98.2 Lab Results Laboratory Tests Test 03/09/19 14:52 03/09/19 15:36 03/09/19 16:45 03/09/19 21:10 Influenza Type A Antigen Negative (NEGATIVE) Influenza Type B Antigen Negative (NEGATIVE) O2 Saturation 92 % (92-99) Arterial Blood pH 7.41 (7.35-7.45) Arterial Blood pCO2 at Patient Temp 59 mmHg (35-46) Arterial Blood pO2 at Patient Temp 56 mmHg (65-108) Arterial Blood HCO3 36 mmol/L (21-28) Arterial Blood Base Excess 9 mmol/L (-3-3) Oxyhemoglobin 73.0 % Methemoglobin 0.3 % (0.0-1.9) Carbon Monoxide, Quantitative 20.2 % (0.0-1.9) FiO2 3l n.c. White Blood Count 7.8 x10^3/uL (4.0-11.0) Red Blood Count 4.49 x10^6/uL (3.50-5.40) Hemoglobin 15.2 g/dL (12.0-15.5) Hematocrit 43.1 % (36.0-47.0) Mean Corpuscular Volume 96 fL (79-100) Mean Corpuscular Hemoglobin 34 pg (25-35) Mean Corpuscular Hemoglobin Concent 35 g/dL (31-37) Red Cell Distribution Width 14.5 % (11.5-14.5) Platelet Count 166 x10^3/uL (140-400) Neutrophils (%) (Auto) 74 % (31-73) Lymphocytes (%) (Auto) 19 % (24-48) Monocytes (%) (Auto) 5 % (0-9) Eosinophils (%) (Auto) 1 % (0-3) Basophils (%) (Auto) 1 % (0-3) Neutrophils # (Auto) 5.8 x10^3/uL (1.8-7.7) Lymphocytes # (Auto) 1.5 x10^3/uL (1.0-4.8) Monocytes # (Auto) 0.4 x10^3/uL (0.0-1.1) Eosinophils # (Auto) 0.1 x10^3/uL (0.0-0.7) Basophils # (Auto) 0.1 x10^3/uL (0.0-0.2) Prothrombin Time 12.1 SEC (11.7-14.0) Prothromb Time International Ratio 0.9 (0.8-1.1) Sodium Level 138 mmol/L (136-145) Potassium Level 3.4 mmol/L (3.5-5.1) Chloride Level 99 mmol/L (98-107) Carbon Dioxide Level 36 mmol/L (21-32) Anion Gap 3 (6-14) Blood Urea Nitrogen 10 mg/dL (7-20) Creatinine 0.5 mg/dL (0.6-1.0) Estimated GFR (Cockcroft-Gault) 125.9 BUN/Creatinine Ratio 20 (6-20) Glucose Level 107 mg/dL (70-99) Lactic Acid Level 0.5 mmol/L (0.4-2.0) Calcium Level 8.6 mg/dL (8.5-10.1) Total Bilirubin 0.5 mg/dL (0.2-1.0) Aspartate Amino Transf (AST/SGOT) 10 U/L (15-37) Alanine Aminotransferase (ALT/SGPT) 23 U/L (14-59) Alkaline Phosphatase 150 U/L (46-116) Troponin I Quantitative < 0.017 ng/mL (0.000-0.055) < 0.017 ng/mL (0.000-0.055) Total Protein 6.4 g/dL (6.4-8.2) Albumin 2.8 g/dL (3.4-5.0) Albumin/Globulin Ratio 0.8 (1.0-1.7) Test 03/10/19 13:25 Magnesium Level 2.1 mg/dL (1.8-2.4) Laboratory Tests Test 03/09/19 15:36 03/09/19 16:45 03/09/19 21:10 03/10/19 13:25 O2 Saturation 92 % (92-99) Arterial Blood pH 7.41 (7.35-7.45) Arterial Blood pCO2 at Patient Temp 59 mmHg (35-46) Arterial Blood pO2 at Patient Temp 56 mmHg (65-108) Arterial Blood HCO3 36 mmol/L (21-28) Arterial Blood Base Excess 9 mmol/L (-3-3) Oxyhemoglobin 73.0 % Methemoglobin 0.3 % (0.0-1.9) Carbon Monoxide, Quantitative 20.2 % (0.0-1.9) FiO2 3l n.c. White Blood Count 7.8 x10^3/uL (4.0-11.0) Red Blood Count 4.49 x10^6/uL (3.50-5.40) Hemoglobin 15.2 g/dL (12.0-15.5) Hematocrit 43.1 % (36.0-47.0) Mean Corpuscular Volume 96 fL (79-100) Mean Corpuscular Hemoglobin 34 pg (25-35) Mean Corpuscular Hemoglobin Concent 35 g/dL (31-37) Red Cell Distribution Width 14.5 % (11.5-14.5) Platelet Count 166 x10^3/uL (140-400) Neutrophils (%) (Auto) 74 % (31-73) Lymphocytes (%) (Auto) 19 % (24-48) Monocytes (%) (Auto) 5 % (0-9) Eosinophils (%) (Auto) 1 % (0-3) Basophils (%) (Auto) 1 % (0-3) Neutrophils # (Auto) 5.8 x10^3/uL (1.8-7.7) Lymphocytes # (Auto) 1.5 x10^3/uL (1.0-4.8) Monocytes # (Auto) 0.4 x10^3/uL (0.0-1.1) Eosinophils # (Auto) 0.1 x10^3/uL (0.0-0.7) Basophils # (Auto) 0.1 x10^3/uL (0.0-0.2) Prothrombin Time 12.1 SEC (11.7-14.0) Prothromb Time International Ratio 0.9 (0.8-1.1) Sodium Level 138 mmol/L (136-145) Potassium Level 3.4 mmol/L (3.5-5.1) Chloride Level 99 mmol/L (98-107) Carbon Dioxide Level 36 mmol/L (21-32) Anion Gap 3 (6-14) Blood Urea Nitrogen 10 mg/dL (7-20) Creatinine 0.5 mg/dL (0.6-1.0) Estimated GFR (Cockcroft-Gault) 125.9 BUN/Creatinine Ratio 20 (6-20) Glucose Level 107 mg/dL (70-99) Lactic Acid Level 0.5 mmol/L (0.4-2.0) Calcium Level 8.6 mg/dL (8.5-10.1) Total Bilirubin 0.5 mg/dL (0.2-1.0) Aspartate Amino Transf (AST/SGOT) 10 U/L (15-37) Alanine Aminotransferase (ALT/SGPT) 23 U/L (14-59) Alkaline Phosphatase 150 U/L (46-116) Troponin I Quantitative < 0.017 ng/mL (0.000-0.055) < 0.017 ng/mL (0.000-0.055) Total Protein 6.4 g/dL (6.4-8.2) Albumin 2.8 g/dL (3.4-5.0) Albumin/Globulin Ratio 0.8 (1.0-1.7) Magnesium Level 2.1 mg/dL (1.8-2.4) Brief Hospital Course Ms. Fisher is a 59 old [sex] who presented with chest pain, NO personal hx CAD but lung CA planned on trail [facility] next wednesday. Celared by cards. PUlmo comanaged, some ABG results ABN, NEEDs HOme O2 , 6 MW done, Doxy on dc, i transmitted to [facility], They are actually tapering her steroid, so i did not rx. HOme today, no PT needs 2 notes today katherine BRAVO Consults; dimas , geronimo Discharge Information Condition at Discharge: Improved, Stable Disposition/Orders: D/C to Home Scheduled Ascorbic Acid (Vitamin C) 500 Mg Capsule, 6 CAP PO DAILY for for 28 Days, #168 Ref 0 (Reported) Entered as Reported by: Anjelica Rasmussen on 03/09/192053 Last Taken: 3,000 mg on Unknown Date & Time Last Action: Converted on 03/09/192201 by Anjelica Rasmussen Cholecalciferol (Vitamin D3) (Vitamin D-3) 2,000 Unit Tablet, 1,000 UNIT PO DAILY for , (Reported) Entered as Reported by: Anjelica Rasmussen on 03/09/192053 Last Action: Converted on 03/09/192201 by Anjelica Rasmussen Clonazepam (Clonazepam) 1 Mg Tablet, 1 MG PO HS for , (Reported) Entered as Reported by: HAWK KENNY on 07/08/17 0859 Last Action: Converted on 03/09/192201 by Anjelica Rasmussen Dexamethasone (Dexamethasone) 4 Mg Tablet, 4 TAB PO Q6HRS for , #8 (Reported) Entered as Reported by: Anjelica Rasmussen on 03/09/192053 Last Action: Continued on 03/09/192201 by Anjelica Rasmussen Doxycycline Hyclate (Doxycycline Hyclate) 100 Mg Tablet, 100 MG PO BID for bronchitis, #14 Prescribed by: TYSHAWN SNYDER on 03/10/19 1529 Escitalopram Oxalate (Escitalopram Oxalate) 10 Mg Tablet, 1 TAB PO DAILY for , #30 Ref 3 (Reported) Entered as Reported by: Anjelica Rasmussen on 03/09/192053 Last Action: Converted on 03/09/192201 by Anjelica Rasmussen Fluticasone Propionate (Flonase Allergy Relief) 9.9 Ml [place].susp, 2 SPRAYS NS DAILY, (Reported) Entered as Reported by: HAWK KENNY on 07/08/17858 Last Action: Converted on 03/09/192201 by Anjelica Rasmussen Lamotrigine (Lamictal) 100 Mg Tablet, 100 MG PO HS for , (Reported) Entered as Reported by: HAWK KENNY on 07/08/17858 Last Action: Continued on 03/09/192201 by Anjelica Rasmussen Levetiracetam (Levetiracetam) 500 Mg Tablet, 1 TAB PO BID for , #180 Ref 3 (Reported) Entered as Reported by: nAjelica Rasmussen on 03/09/192053 Last Action: Continued on 03/09/192201 by Anjelica Rasmussen Montelukast Sodium (Montelukast Sodium Tablet ) 10 Mg Tablet, 10 MG PO HS for FOR ASTHMA, #30 Ref 0 (Reported) Entered as Reported by: HAWK KENNY on 07/08/17858 Last Action: Continued on 03/09/192201 by Anjelica Rasmussen Multivitamin (Multi Vitamin Daily) 1 Each Tablet, 1 TAB PO DAILY for for 30 Days, #30 Ref 0 (Reported) Entered as Reported by: Anjelica Rasmussen on 03/09/192053 Last Action: Converted on 03/09/192201 by Anjelica Rasmussen Pregabalin (Lyrica) 75 Mg Capsule, 75 MG PO TID, (Reported) Entered as Reported by: HAWK KENNY on 07/08/17858 Last Action: Continued on 03/09/192201 by Anjelica Rasmussen Propranolol Hcl (Propranolol Hcl) 40 Mg Tablet, 1 TAB PO BID for , #60 Ref 5 (Reported) Entered as Reported by: Anjelica Rasmussen on 03/09/192053 Last Action: Continued on 03/09/192201 by Anjelica Rasmussen Quetiapine Fumarate (Seroquel) 300 Mg Tablet, 2 TAB PO QHS for , #30 Ref 1 (Reported) Entered as Reported by: Anjelica Rasmussen on 03/09/192053 Last Action: Converted on 03/09/192201 by Anjelica Rasmussen Ropinirole Hcl (Ropinirole Hcl) 2 Mg Tablet, 2 MG PO TID for , (Reported) Entered as Reported by: Anjelica Rasmussen on 03/09/192053 Last Action: Converted on 03/09/192201 by Anjelica Rasmussen Scheduled PRN Albuterol Sulfate (Proair Hfa) 8.5 Gm Hfa.aer.ad, 2 PUFF IH PRN Q6HRS PRN for wheezing for 21 Days, #1 Ref 0 (Reported) Entered as Reported by: Anjelica Rasmussen on 03/09/192053 Last Action: New Order on 03/09/192053 by Anjelica Rasmussen Azelastine Hcl (Azelastine Hcl) 137 Mcg/0.137 Ml [place].pump, 2 SPRAY NS PRN DAILY PRN for ALLERGIES for 30 Days, #30 Ref 0 (Reported) Entered as Reported by: Anjelica Rasmussen on 03/09/192053 Last Action: Continued on 03/09/192201 by Anjelica Rasmussen Cyclobenzaprine Hcl (Cyclobenzaprine Hcl) 10 Mg Tablet, 10 MG PO PRN TID PRN for MUSCLE PAIN, (Reported) Entered as Reported by: HAWK KENNY on 07/08/17858 Last Action: Continued on 03/09/192201 by Anjelica Rasmussen Ramelteon (Rozerem) 8 Mg Tablet, 1 TAB PO PRN QHS PRN for INSOMNIA for 30 Days, Ref 0 (Reported) Entered as Reported by: Anjelica Rasmussen on 03/09/192053 Last Action: Converted on 03/09/192201 by Anjleica Rasmussen Sumatriptan Succinate (Imitrex) 100 Mg Tablet, 100 MG PO PRN DAILY PRN for MIGRAINE HEADACHE, (Reported) Entered as Reported by: HAWK KENNY on 07/08/17858 Last Action: Continued on 03/09/192201 by Anjeliac Rasmussen Miscellaneous Medications Epinephrine (Epipen 2-Chad) 0.3 Mg/0.3 Ml Auto.injct, 0.3 MG IJ, (Reported) Entered as Reported by: HAWK KENNY on 07/08/17858 Rotigotine (Neupro) 1 Each Patch.td24, 1 EACH TD, (Reported) Entered as Reported by: HAWK KENNY on 07/08/17858 Last Action: Reviewed on 03/10/19926 by TYSHAWN OTERO MD Mar 10, 2019 15:33
--- NOTE | 2019-03-10 15:48 | CARD ---
MR#: [id number] Date of Study: 03/10/2019 Ordering Physician: CAMILLE VENTURA, Referring Physician: CAMILLE VENTURA, Tech: Susie Cheek [facility] APPROVED REPORT EXAM: Two-dimensional and M-mode echocardiogram with Doppler and color Doppler. Other Information Quality : Good INDICATION Chest Pain RISK FACTORS Smoking 2D DIMENSIONS RVDd2.3 (2.9-3.5cm)Left Atrium(2D)3.7 (1.6-4.0cm) IVSd1.0 (0.7-1.1cm)Aortic Root(2D)3.0 (2.0-3.7cm) LVDd4.6 (3.9-5.9cm)LVOT Diameter2.1 (1.8-2.4cm) PWd0.8 (0.7-1.1cm)LVDs2.8 (2.5-4.0cm) FS (%) 38.9 %SV68.1 ml LVEF(%)60.0 (>50%) Aortic Valve AoV Peak Ignacio.199.9cm/sAoV VTI37.3cm AO Peak GR.16.0mmHgLVOT Peak Ignacio.184.9cm/s AO Mean GR.9mmHgAVA (VMAX)3.16cm2 TRINY (VTI)3.40cm2 Mitral Valve MV E Fkjhfygu636.4cm/sMV DECEL DYRP808rd MV A Bizvusbh120.2cm/sE/A Ratio0.9 Tricuspid Valve TR P. Lqmzbssj767nh/sRAP OVHPNLBG6pwRh TR Peak Gr.63ryExXVAL82uaXu Pulmonary Vein S1 Qfaflvlt07.9cm/sD2 Pvprubzu82.2cm/s LEFT VENTRICLE The left ventricle is normal size. There is normal left ventricular wall thickness. The left ventricu lar systolic function is normal. The Ejection Fraction is 55-60%. There is normal LV segmental wall m otion. Transmitral Doppler flow pattern is Grade I-abnormal relaxation pattern. RIGHT VENTRICLE The right ventricle is normal size. The right ventricular systolic function is normal. ATRIA The left atrium size is normal. The right atrium size is normal. The interatrial septum is intact wit h no evidence for an atrial septal defect or patent foramen ovale as noted on 2-D or Doppler imaging. AORTIC VALVE The aortic valve is calcified but opens well. Doppler and Color Flow revealed no significant aortic r egurgitation. There is no significant aortic valvular stenosis. MITRAL VALVE The mitral valve is normal in structure and function. There is no evidence of mitral valve prolapse. There is no mitral valve stenosis. Doppler and Color Flow revealed no mitral valve regurgitation note d. TRICUSPID VALVE The tricuspid valve is normal in structure and function. Doppler and Color Flow revealed trace tricus pid regurgitation. The PA pressure was estimated at 26 mmHg. There is no tricuspid valve stenosis. PULMONIC VALVE The pulmonic valve is not well visualized. Doppler and Color Flow revealed no pulmonic valvular regur gitation. There is no pulmonic valvular stenosis. GREAT VESSELS The aortic root is normal in size. The ascending aorta is normal in size. The IVC is normal in size a nd collapses >50% with inspiration. PERICARDIAL EFFUSION There is no evidence of significant pericardial effusion. Critical Notification Critical Value: No <Conclusion> The left ventricular systolic function is normal. The Ejection Fraction is 55-60%. Transmitral Doppler flow pattern is Grade I-abnormal relaxation pattern. Trace tricuspid regurgitation. The PA pressure was estimated at 26 mmHg. There is no evidence of significant pericardial effusion. Signed by : Oscar Camarillo, Electronically Approved : 03/10/2019 15:48:25
--- NOTE | 2019-03-10 16:12 | NUR ---
SS following up with discharge planning. Script for oxygen received. Pt has [facility]. SS phoned and faxed script and referral to [facility], ; fax [phone]. [facility] confirmed all needed paperwork has been received. Oxygen tank provided to pt for discharge.
--- NOTE | 2019-03-10 16:36 | NUR ---
Patient discharged to home with oxygen. Discharge instruction given and verbalized understanding. PIV and heart monitor removed. Escorted patient to [facility] per wheelchair into a private vehicle.
--- NOTE | 2019-03-10 22:11 | CONS ---
DATE OF CONSULTATION: 03/10/2019 ATTENDING PHYSICIAN: Richie Oconnor DO REASON FOR CONSULTATION: The patient seen in pulmonary consultation at the request of Dr. Oconnor for history of lung cancer and shortness of air, hypercapnia. Arterial blood gas revealed a pH of 7.41, PaCO2 of 59, pO2 of 56. HISTORY OF PRESENT ILLNESS: The patient is a 59-year-old smoker, recently diagnosed with stage 4 non-small cell lung cancer in 01/2019, completed radiation in 02/2014. She is currently on a steroid taper. She developed some spontaneous falls 2 days ago, presented to the Emergency Department and was admitted. I was asked to see her in consultation. Her arterial blood gas last evening revealed a pH of 7.41, PaCO2 of 59, pO2 of 56. The patient reports no fever or chills. No shortness of air. She normally does not wear oxygen at home. She is utilizing p.r.n. albuterol. PAST MEDICAL HISTORY: Otherwise remarkable for: 1. Non-small cell lung cancer stage 4 with brain metastases as indicated above. 2. Osteoarthritis. 3. COPD. 4. Possible rheumatoid arthritis. 5. Tobacco use. 6. Carpal tunnel syndrome. 7. Fibromyalgia, ulcerative colitis, gout, hepatitis C, migraines. PAST SURGICAL HISTORY: Status post hysterectomy, back surgery, cataract, foot surgery, cholecystectomy, carpal tunnel release. ALLERGIES: She is allergic to multiple medications, please see the list. MEDICATIONS: List was reviewed. SOCIAL HISTORY: She continues to smoke, occasional use of marijuana and alcohol. FAMILY HISTORY: Remarkable for lung cancer. REVIEW OF SYSTEMS: As indicated above, otherwise, a 10-point system was reviewed and negative. PHYSICAL EXAMINATION: GENERAL: The patient was in no respiratory distress. VITAL SIGNS: Stable. O2 saturation greater than 92%. HEENT: Eyes, the sclerae were nonicteric. NECK: Jugular venous distention was not elevated. No lymphadenopathy. CHEST: Full expansion. LUNGS: Adequate air flow with crackles throughout both lung dunn. CARDIOVASCULAR: Regular rate and rhythm with S1, S2, no S3. ABDOMEN: Soft, nontender, nondistended. EXTREMITIES: No clubbing, cyanosis or edema. LABORATORY DATA: Chest x-ray reviewed. There was some interstitial markings, possibly related with lymphangitic spread. IMPRESSION: 1. Acute hypoxemic respiratory failure. 2. Stage 4 lung cancer with metastases to the brain. Suspect lymphangitic spread based on chest x-ray findings. 3. Chronic obstructive pulmonary disease. 4. Tobacco dependence. 5. Frequent falls. 6. Hypercapnia compensated with normal pH. PLAN: 1. We will proceed with 6-minute walk. I suspect the patient will require some oxygen supplementation. 2. Continue doxycycline for a total of 7 days. 3. Continue steroids. I do appreciate the privilege in sharing in the patient's care. TALIB THOMPSON MD DR: PABLO/leia JOB#: [id number] / [id number]
== END 2019-03-10 16:35 | disposition home or self-care (01) | DRG 193 ==
LOC: ER 15:07 → 2 NORTH 18:00
PROVIDERS: ADMIT Internal Medicine; ATTEND Internal Medicine
DX: J18.9 Pneumonia, unspecified organism (principal); J96.21 Acute and chronic respiratory failure with hypoxia; J44.0 Chronic obstructive pulmonary disease with (acute) lower respiratory infection; C34.90 Malignant neoplasm of unspecified part of unspecified bronchus or lung; C79.31 Secondary malignant neoplasm of brain; K51.90 Ulcerative colitis, unspecified, without complications; J44.1 Chronic obstructive pulmonary disease with (acute) exacerbation; D63.8 Anemia in other chronic diseases classified elsewhere; E66.9 Obesity, unspecified; E78.5 Hyperlipidemia, unspecified; E87.6 Hypokalemia; F12.90 Cannabis use, unspecified, uncomplicated; F17.210 Nicotine dependence, cigarettes, uncomplicated; G43.909 Migraine, unspecified, not intractable, without status migrainosus; M47.816 Spondylosis without myelopathy or radiculopathy, lumbar region; M79.7 Fibromyalgia; M81.0 Age-related osteoporosis without current pathological fracture; T38.0X5A Adverse effect of glucocorticoids and synthetic analogues, initial encounter; W22.01XA Walked into wall, initial encounter; Z68.30 Body mass index [BMI] 30.0-30.9, adult; Z79.899 Other long term (current) drug therapy; Z80.1 Family history of malignant neoplasm of trachea, bronchus and lung; Z85.118 Personal history of other malignant neoplasm of bronchus and lung; Z90.710 Acquired absence of both cervix and uterus; Z92.3 Personal history of irradiation; F32.9 Major depressive disorder, single episode, unspecified; F41.9 Anxiety disorder, unspecified; M10.9 Gout, unspecified; M19.90 Unspecified osteoarthritis, unspecified site; Z88.8 Allergy status to other drugs, medicaments and biological substances; Z91.030 Bee allergy status
CPT/HCPCS: 36415; 36600; 70450; 71045; 72110; 72125; 73521; 80053; 82805; 83605; 83735; 84484; 85025; 85610; 87040; 87804; 93005; 93306; 94618; 94640; 96365; 96375; J0696; J0780; J1885; J2930; J3490; J7030; J7620; J8540; 99285-25; G0378